=== PATIENT | female | born 1960 | race Caucasian/White ===

== ENCOUNTER 2016-06-03 15:53 | Emergency (ER) | payer OTHER ==
--- NOTE | 2016-06-03 18:30 | DIAGNOSTIC IMAGING REPORT ---
PROCEDURE: ABDOMEN/PELVIS WITH CONTRAST CLINICAL INDICATION: ABDO PAIN WITH HIATAL HERNIA SURGERY 5W AGO TECHNIQUE: 100 ml of Isovue 300 were injected intravenously and axial images were obtained of the abdomen and pelvis with sagittal and coronal reformations. COMPARISON: 03/28/2014 FINDINGS: ABDOMEN: Clear lung bases. Normal sized heart. No hiatal hernia. Morphology of recent Jannette fundoplication. No evidence of slipped Jannette. The stomach is mildly distended, filled with fluid, and demonstrating air fluid levels distally. 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 The pancreas is diminutive. There is a 3.7 cm cyst within what is likely the tail of the pancreas, not present previously. The liver demonstrates patchy hepatic steatosis in the region of the falciform ligament. The adrenal glands, kidneys, are normal. The abdominal aorta is normal in its course and caliber. No atherosclerosis. There are no suspicious calcifications, retroperitoneal adenopathy or masses. The small bowel loops are mainly right-sided and demonstrate occasional air fluid levels. There is liquid stool in the colon, mild sigmoid diverticulosis, and air fluid levels in distal colon and rectum. There are surgical changes of probable appendectomy in the right lower quadrant. PELVIS: The uterus is surgically absent. Ovaries are not identified. Surgical clips in the right inguinal region. The urinary bladder, and pelvic vessels are normal. No adenopathy, free fluid, or pelvic mass. Moderate to severe disc and endplate degeneration L4-5 and L5-S1. IMPRESSION: 1. No CT evidence of complication from recent Jannette fundoplication. 2. Changes of gastroenteritis including distended, fluid-filled stomach. 3. 3.7 cm probable pancreatic cyst, new since the prior study. This may be a pseudocyst or benign neoplasm. Further characterization with MRI is recommended. 4. 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 5. Distended gallbladder with moderate biliary dilatation. Correlate with LFTs. 6. Post hysterectomy and probable appendectomy. 7. Discussed with Dr. Marie in the emergency room. All CT scans at this facility use dose modulation, iterative reconstruction, and/or weight-based dosing when appropriate to reduce radiation dose to as low as reasonably achievable.
--- NOTE | 2016-06-03 19:43 | ED CLINICAL REPORT ---
Clinical Report - Physicians/Mid Levels [facility] [address] [place] [address] 06/03/2016 15:53 Patient: ROXANNE CAMPBELL Time Seen: 1555. Arrived- By ambulance. Historian- patient. HISTORY OF PRESENT ILLNESS Chief Complaint: ABDOMINAL PAIN. This started yesterday and is still present (worsening). It was abrupt in onset and has been constant but is not gone now. At its maximum, severity described as severe. When seen in the E.D., severity described as severe. Modifying factors- worsened by movement. (does not know what it is relieved by). It is described as located in the lower abdomen and radiating (upper abdomen). The patient has had nausea and vomiting. No loss of appetite or diarrhea. No recent travel. Similar symptoms previously: Many times. ( reports going to the emergency department multiple times but "they haven't done anything for me." Reports she went to [facility] and had hiatal hernia surgery done about 5 weeks ago.). Recent medical care: Not recently seen/assessed. REVIEW OF SYSTEMS No constipation, black stools, hematemesis, bloody stools or fever. No chest pain, difficulty breathing or skin rash. All systems otherwise negative, except as recorded above. PAST HISTORY See nurses notes. SOCIAL HISTORY Former smoker. No alcohol use or drug use. PHYSICAL EXAM Appearance: Alert. Oriented X3. Patient in mild distress. Eyes: Pupils equal, round and reactive to light. Eyes normal inspection. ENT: Ears normal. Nose normal. Pharynx normal. Neck: Normal inspection. Neck supple. CVS: Normal heart rate and rhythm. Heart sounds normal. Pulses normal. Respiratory: No respiratory distress. Breath sounds normal. Chest nontender. No rales, rhonchi or wheezes. Abdomen: Soft and nontender. No mass. (hyperactive bowel sounds. well healed abdominal scars. no hernia. no rebound or guarding. negatives ana's. no tenderness at mcburney's.). Skin: Skin warm and dry. Normal skin color. No rash. Extremities: Extremities exhibit normal ROM. No lower extremity edema. Neuro: No motor deficit. No sensory deficit. (normal gait). LABS, X-RAYS, AND EKG Abdominal CT: PROCEDURE: ABDOMEN/PELVIS WITH CONTRAST CLINICAL INDICATION: ABDO PAIN WITH HIATAL HERNIA SURGERY 5W AGO TECHNIQUE: 100 ml of Isovue 300 were injected intravenously and axial images were obtained of the abdomen and pelvis with sagittal and coronal reformations. COMPARISON: 03/28/2014 FINDINGS: ABDOMEN: Clear lung bases. Normal sized heart. No hiatal hernia. Morphology of recent Jannette fundoplication. No evidence of slipped Jannette. The stomach is mildly distended, filled with fluid, and demonstrating air fluid levels distally. 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 The pancreas is diminutive. There is a 3.7 cm cyst within what is likely the tail of the pancreas, not present previously. The liver demonstrates patchy hepatic steatosis in the region of the falciform ligament. The adrenal glands, kidneys, are normal. The abdominal aorta is normal in its course and caliber. No atherosclerosis. There are no suspicious calcifications, retroperitoneal adenopathy or masses. The small bowel loops are mainly right-sided and demonstrate occasional air fluid levels. There is liquid stool in the colon, mild sigmoid diverticulosis, and air fluid levels in distal colon and rectum. There are surgical changes of probable appendectomy in the right lower quadrant. PELVIS: The uterus is surgically absent. Ovaries are not identified. Surgical clips in the right inguinal region. The urinary bladder, and pelvic vessels are normal. No adenopathy, free fluid, or pelvic mass. Moderate to severe disc and endplate degeneration L4-5 and L5-S1. IMPRESSION: 1. No CT evidence of complication from recent Jannette fundoplication. 2. Changes of gastroenteritis including distended, fluid-filled stomach. 3. 3.7 cm probable pancreatic cyst, new since the prior study. This may be a pseudocyst or benign neoplasm. Further characterization with MRI is recommended. 4. 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 5. Distended gallbladder with moderate biliary dilatation. Correlate with LFTs. 6. Post hysterectomy and probable appendectomy. Study type: abdomen and pelvis. Abdominal CT performed with IV contrast. The study was independently viewed by me and interpreted by the radiologist. The study was discussed with the radiologist (via phone and pacs). Laboratory Tests: UA-Culture if indicated: (KWASI: 06/03/2016 16:55) ( [facility] [place] 06/03/[place] 17:27) Final results Test Result Flag Units (Reference) URINE COLOR YELLOW URINE APPEARANCE CLOUDY URINE GLUCOSE NEGATIVE (NEGATIVE) URINE BILIRUBIN NEGATIVE (NEGATIVE) URINE KETONE TRACE (NEGATIVE) URINE SPECIFIC GRAVITY 1.015 (1.010-1.030) URINE PH 8.5 H (5.0-8.0) URINE PROTEIN TRACE (NEGATIVE) URINE UROBILINOGEN 0.2 EU/dL (0.2-1.0) URINE NITRITE NEGATIVE (NEGATIVE) URINE BLOOD NEGATIVE (NEGATIVE) URINE LEUK ESTERASE NEGATIVE (NEGATIVE) URINE RBC NONE SEEN rbc/hpf (0-1) URINE WBC RARE wbc/hpf (0-1) URINE EPITHELIAL CELLS 0-1 EPI/hpf (0-5) URINE BACTERIA NONE SEEN (NONE SEEN) URINE COMMENT CULT NOT INDICATED 4+ AMORPHOUS PHOSPHATESURINE CULTURES ARE SET-UP BASED ON THE FOLLOWING CRITERIA:POSITIVE NITRITEPOSITIVE LEUKOCYTE ESTERASEGREATER THAN 10 WHITE BLOOD CELLSMODERATE (2+) OR GREATER BACTERIA Urine: (KWASI: 06/03/2016 16:55) ( [facility] [place] 06/03/2016 17:18) Final results Test Result Flag Units (Reference) URINE NEGATIVE CBC w Diff: (KWASI: 06/03/2016 16:05) ( [facility] [place] 06/03/2016 16:27) Final results Test Result Flag Units (Reference) WHITE BLOOD COUNT 5.8 K/uL (4.5-11.5) RED BLOOD COUNT 4.18 M/uL (4.00-5.20) HEMOGLOBIN 13.9 gm/dL (12.0-16.0) HEMATOCRIT 40.9 % (36.0-46.0) MEAN CELL VOLUME 98 fL (80-100) MEAN CORPUSCULAR HGB 33 pg (26-34) MEAN CORPUSCULAR HGB CONC 34 g/dL (31-37) RED CELL DISTRIBUTION WIDTH 17.3 H % (11.6-14.8) PLATELET COUNT 337 K/uL (150-400) NEUTROPHIL % 62.6 % (50-75) LYMPH % 23.3 L % (25-40) MONO % 11.4 % (3-14) EOSINOPHIL % 1.5 % (0-4) BASOPHIL % 1.2 % (0-2) Urine Drug Screen: (KWASI: 06/03/2016 16:55) ( [facility] [place] 06/03/2016 17:23) Final results Test Result Flag Units (Reference) AMPHETAMINE/METHAMPHETAMINE NEGATIVE (NEGATIVE) BARBITURATE NEGATIVE (NEGATIVE) BENZODIAZEPINE NEGATIVE (NEGATIVE) CANNABINOID NEGATIVE (NEGATIVE) COCAINE NEGATIVE (NEGATIVE) ECSTASY NEGATIVE (NEGATIVE) METHADONE NEGATIVE (NEGATIVE) OPIATE 2 (NEGATIVE) The urine drug screen is a qualitative screening test fordrug overdose and abuse. All screen results should beconsidered as presumptive.Drugs screened for are as follows:BenzodiazepinesCocaineAmphetamines/MetamphetaminesTHC (Tetrahydrocannabinol)OpiatesBarbituratesEcstasyMethadonePositive results are unconfirmed. For confirmation, notifythe lab for the specimen to be sent to the reference lab.All confirmations must be performed by a differentmethodology.The ingestion of natural herbal and plant productscontaining Ephedra/Ephedra metabolites can produce in urineone or more substances capable of cross reacting withamphetamine/methamphetamine immunoassays. These testsprovide a preliminary result only. A more specificalternative chemical method must be used to obtain aconfirmed analytical result. CMP: (KWASI: 06/03/2016 16:05) ( [facility] [place] 06/03/2016 17:23) Final results Test Result Flag Units (Reference) GLUCOSE 114 H mg/dL (70-110) BUN 8 mg/dL (7-18) CREATININE 0.7 mg/dL (0.6-1.3) Estimated GFR >60 mL/min Estimated GFR- >60 mL/min Note: Persistent reduction over 3 months in eGFR<60 mL/min/1.73 m2 defines CKD. Patients with eGFR values>=60 mL/min/1.73 m2 may also have CKD if evidence ofpersistent proteinuria. Additional information may be foundat www.kidney.org. SODIUM 136 mmol/L (136-145) POTASSIUM 3.8 mmol/L (3.5-5.1) CHLORIDE 98 mmol/L (98-107) CARBON DIOXIDE 26 mmol/L (21-32) CALCIUM 9.1 mg/dL (8.5-10.1) TOTAL PROTEIN 7.5 g/dL (6.4-8.2) ALBUMIN 3.6 g/dL (3.3-5.0) BILIRUBIN, TOTAL 0.4 mg/dL (0.0-1.0) ALKALINE PHOSPHATASE 145 H U/L (46-116) AST (SGOT) 88 H U/L (15-37) ALT (SGPT) 50 U/L (12-78) LIPASE 40 L U/L (73-393) . PROGRESS AND PROCEDURES Course of Care: the patient is a pleasant 37-year-old female with past medical history significant for recent "hiatal hernia repair. "The patient is in a mild amount of distress when here in the emergency department. Patient is also noted to have several visits to an outside facility for similar problems. Had long discussion with patient in regards to capabilities and services available here in the emergency department. Patient is agreeable to the treatment and plan. At this time differential diagnosis includes perforation, ischemic bowel, small bowel obstruction, or intra-abdominal abscess. Laboratory studies have been ordered as well as urinalysis. Pain medication, nausea medication and fluids have also been ordered. Workup does not show any acute surgical abnormalities to the abdomen and pelvis. Patient does have several congenital abnormalities on her CT scan results. Had discussion with radiology in regards to the findings. A printout of the patient's laboratory studies and imaging results also been given to the patient and reviewed with the patient's at bedside. Patient is reporting significant improvement with her symptoms. Patient is nontoxic and in no acute distress. Patient started to have increasing diarrhea while here in the emergency department. Signs and symptoms appear to be nonsurgical at this time. Discussed with patient workup, diagnosis, home care, follow-up, and return precautions. All questions have been answered. The patient expressed understanding of these instructions and was agreeable to them. Repeat abdominal exam is benign. CLINICAL IMPRESSION Acute suprapubic abdominal pain. Vomiting with nausea (acute). Diarrhea (acute, mild). pancreatic cyst, chronic elevate liver enzymes, chronic. INSTRUCTIONS Warnings: GENERAL WARNINGS: Return or contact your physician immediately if your condition worsens or changes unexpectedly, if not improving as expected, or if other problems arise. SPECIFICALLY, return if you develop pain, fever, vomiting, the inability to keep fluids down, blood in vomitus, blood in diarrhea, fainting or lightheadedness. Your Current Medications: CONTINUE TAKING THE FOLLOWING MEDICATIONS: Elma Thyroid Oral : Tablet 180 mg, 1 tablet. Cymbalta Oral. Dicyclomine HCl Oral. Reglan Oral. Prescription Medications: Zofran (orally disintegrating tablets) 4 mg: take 1 orally every 8 hours as needed for nausea and vomiting. Dispense ten (10). No refill. Substitution is permissible. Oxycodone 5 mg tablets: take 1 orally every 6 hours as needed for pain. Dispense fifteen (15). No refill. Follow-up: Return to the emergency department as needed. Follow up with a loss prevention guard as scheduled. Reason for referral: recheck today's concerns. Summary of care provided to patient via paper. Follow up with your doctor in three days. Reason for referral: recheck today's concerns. Summary of care provided to patient via paper. Screening today revealed the patient's blood pressure to be in the normal range. The patient should follow up with a primary care provider for blood pressure management. Understanding of the discharge instructions verbalized by patient. (Electronically signed by Chilo Marie Dr. 06/05/2016 4:04)
--- NOTE | 2016-06-03 19:44 | ED ORDER SUMMARY ---
..... Patient: ROXANNE CAMPBELL OrderSheet [facility] VisitID: [id number] [place] [address] 55y, F Registration Date/Time: 06/03/2016 ORDER SHEET Weight: 61.2 kg (stated) Allergies: Amoxicillin, Phenergan GENERAL ORDERS: CT Abd/Pel w Cont (No) (N/A) Urgent (15:59 06/03/2016 Poncho Delcid) (Ack 16:05 LNations ER Tech1) (17:50 Kassy) CBC w Diff Urgent (16:00 06/03/2016 Poncho Delcid) (Ack 16:04 LNations ER Tech1) (16:10 JSlawandas R.N.) CMP Urgent (16:00 06/03/2016 Poncho Delcid) (Ack 16:05 LNations ER Tech1) (16:30 JSanders R.N.) UA-Culture if indicated Urgent (16:00 06/03/2016 Poncho Delcid) (Ack 16:05 LNations ER Tech1) (17:01 JSimbeck R.N.) Lipase Urgent (16:00 06/03/2016 Poncho Delcid) (Ack 16:05 LNations ER Tech1) (16:30 JSanders R.N.) Urine Drug Screen Urgent (16:00 06/03/2016 Poncho Delcid) (Ack 16:05 LNations ER Tech1) (17:01 JSimbeck R.N.) Urine Urgent (16:00 06/03/2016 Poncho Delcid) (Ack 16:05 LNations ER Tech1) (17:01 JSimbeck R.N.) Pulse oximeter (16:00 06/03/2016 Poncho Delcid) (Ack 16:02 LNations ER Tech1) (16:11 JSimbeck R.N.) MEDICATION ORDERS: IV FLUIDS: IV NS : initial bolus 1000 mL (1000 mL/hr), then none - for X1 (NOW) (15:59 06/03/2016 Poncho Delcid) (16:32 JSanders R.N.) Morphine IV 8 mg (HIGH ALERT MEDICATION, NOW) (16:00 06/03/2016 Poncho Delcid) (16:32 Ashley Acharya) Zofran IV 4 mg (NOW) (16:00 06/03/2016 Poncho Delcid) (16:33 Ashley Epperson.Jordan) Morphine IV 8 mg (HIGH ALERT MEDICATION, NOW) (19:36 06/03/2016 Poncho Delcid) (19:49 Maryana Epperson.Jordan) ORDER SHEET NOTES: [Electronically signed by Eleni Molina R.N. (20:31 06/03/2016)] [Electronically signed by Chilo Marie Dr. (04:04 06/05/2016)] [Electronically locked/signed by Eleni Molina R.N. (20:31 06/03/2016)]
--- NOTE | 2016-06-03 19:44 | ED NURSING NOTES ---
Clinical Report - Nurses [facility] [address] [place] [address] 06/03/2016 15:53 [id number] Triage time 15:56. Acuity: LEVEL 3. Chief Complaint: (Severe abd pain 5 days post-op hiatal hernia surgery, nausea, dry heaves). 16:01 06/03/16. SEPSIS SCREEN: Sepsis Screen. Negative (no infection suspected/documented). JHON COMA SCORE: Jhon Coma Scale: 15- eyes open spontaneously (4); best verbal response- oriented x 4 (5); best motor response- obeys commands (6). --16:04 Anuj Martines R.N. 15:56 06/03/16. BP: 168/121. HR: 110. RR: 16. O2 saturation: 97% on room air. Temp: 98.3 F (oral). Pain level now: 01/08. --16:04 Anuj Martines R.N. Weight: 61.2 kg stated. Height/Length: 69 inches Per Patient. BMI: 19.9. --16:00 Anuj Martines R.N. Medications Cymbalta Oral. --16:00 Anuj Martines R.N. Dicyclomine HCl Oral. --16:00 Anuj Martines R.N. Reglan Oral. --16:00 Anuj Martines R.N. [place] Thyroid Oral (Tablet 180 mg) 1 tablet. --16:01 Anuj Martines R.N. Allergies Amoxicillin. Mild(diarrhea) Phenergan. Moderate(itching) (IV form, pt has taken PO and MS) --15:57 Anuj Martines R.N. History Arrived by EMS. Historian: patient. Onset. (5 days ago). No fever. Treatment TOE STAPLER: None. SOCIAL HX: Former smoker, end date 05/2016 (cigarette). Occasional alcohol use. No drug use. ABUSE ASSESSMENT: No report of abuse. --16:04 Anuj Martines R.N. PROBLEMS: Hiatal Hernia. UTI - Urinary Tract Infection. Fibromyalgia. Chronic Headache. Abdominal Pain. Gastritis. Hypokalemia. Gastroesophageal Reflux Disease. Twisted Bowel. Sinusitis. Lifestyle / Substance Problems. Sinus Problems. ? stomach problems. Migraine Headache. --15:58 Anuj Martines R.N. ADDITIONAL SURGERIES: Hiatal hernia. --15:58 Anuj Martines R.N. Interventions To treatment room. --16:04 Anuj Martines R.N. PHYSICAL ASSESSMENT 16:06 06/03/16. To room via stretcher. GENERAL / NEURO / PSYCH: Alert. Oriented X 4. Appears in pain. HEENT: Pupils equal, round and reactive to light. No facial asymmetry noted. Mucous membranes are pink. RESPIRATORY: Respirations not labored. Chest nontender. Breath sounds within normal limits. CVS: Cardiac rhythm: sinus tachycardia. Capillary refill less than 2 seconds. Pulses within normal limits. GI / : Abdomen soft. Abdominal tenderness diffusely and in the suprapubic area and lower abdomen. Guarding present. SKIN: Skin is warm and dry. Normal skin turgor. ( Surgical incisions are healing well). --16:06 Anuj Martines R.N. NURSING PROGRESS NOTES 16:06/03/16. professional services consultant, pulse oximeter and NIBP monitor placed on patient; public address system operator- Lead II and V1; monitor alarms on. Patient gowned. Reassurance given. Call light placed in reach. Side rails up x 2. Bed placed in lowest position. Brakes of bed on. Patient ready for evaluation- chart flagged. --16:06 Anuj Martines R.N. 16:16 06/03/2016 Site #1 started via IV in the right forearm with an 20g angiocath, with aseptic technique and good blood return; one attempt. Blood drawn: rainbow set. Labeled in the presence of the patient and sent to the lab. Saline lock flushed with 10 mL saline. --16:31 Simona Lo R.N. 16:17 06/03/2016 Started bag #1 1000 mL IV Fluids IV NS (Saline); at 1000 mL/hr over 1 hour(s) via site #1 via dial-a-flow. Allergies verified and confirmed 5 rights. IV patency established. IV site checked: no pain, redness, or swelling. IV flushed thoroughly pre- and post-medication administration. --16:32 Simona Lo R.N. 16:17 06/03/2016 Morphine IVP 8 mg given over 2 minute(s) via site #1. Allergies verified, confirmed 5 rights and sedative warning given to the patient. IV patency established. IV site checked: no pain, redness, or swelling. IV flushed thoroughly pre- and post-medication administration. IVP given by RN. --16:32 Simona Lo R.N. 16:18 06/03/2016 Zofran (Ondansetron HCl) IVP 4 mg given over 1 minute(s) via site #1. Allergies verified and confirmed 5 rights. IV patency established. IV site checked: no pain, redness, or swelling. IV flushed thoroughly pre- and post-medication administration. IVP given by RN. --16:33 Simona Lo R.N. 17:14 06/03/2016 Morphine IVP Response: no adverse reaction pain is improving. Symptoms have improved the patient feels better. --17:14 Simona Lo R.N. 17:14 06/03/2016 Zofran IVP Response: no adverse reaction pain is improving. Symptoms have improved the patient feels better. --17:14 Simona Lo R.N. 17:50 06/03/16. Patient returned from radiology by stretcher with tech. (17:48 Jun 03 2016). ( Patient feeling much better, no more N/V and pain is relieved). --17:50 Simona Lo R.N. 17:48 06/03/16. BP: 115/77 (regular adult cuff) taken on the left arm, while lying. HR: 110. RR: 16 (regular). O2 saturation: 98% on room air. Temp: 98 F (oral). Pain level now: 04/10. --17:50 Simona Lo R.N. 18:33 06/03/2016 IV Fluids IV NS Discontinued: bag #1 completed. Total amount infused: 1000 mL. IV patency established. IV site checked: no pain, redness, or swelling. IV flushed thoroughly. --18:33 Simona Lo R.N. 18:34 06/03/16. ( Patient up to use the restroom, NS fluid complete, patient says her pain is starting to return). --18:34 Simona Lo R.N. 18:40 06/03/16. ( Patient returned from restroom). --18:40 Simona Lo R.N. 18:39 06/03/16. BP: 108/72 (regular adult cuff) taken on the left arm, while lying. HR: 109. RR: 18 (regular). O2 saturation: 96% on room air. Temp: 97.8 F (oral). Pain level now: 4/10. --18:40 Simona Lo R.N. 18:57 06/03/16. ( Patient up to use the restroom). --18:57 Simona Lo R.N. 19:07 06/03/16. Care transferred and report received (from KELTON Jarvis). --19:07 Eleni Molina R.N. 19:47 06/03/2016 Morphine IVP 8 mg given over 2 minute(s) via site #1. Allergies verified, confirmed 5 rights and sedative warning given to the patient. IV patency established. IV site checked: no pain, redness, or swelling. IV flushed thoroughly pre- and post-medication administration. IVP given by RN. --19:49 Eleni Molina R.N. 19:49 06/03/16. ( Remedicated for pain). --19:49 Eleni Molina R.N. DISPOSITION / DISCHARGE 20:06 06/03/16. BP: 97/73. HR: 96. RR: 16. O2 saturation: 98%. Temp: 97.7 F. Pain level now 0/10. --20:09 Kim Murry ER Tech1 20:26 06/03/2016 Site #1 removed upon discharge. --20:30 Eleni Molina R.N. 20:30 06/03/16. Condition at departure: improved and stable. No learning barriers present. Discharge instructions provided and reviewed with the patient. Reviewed medication(s) side effects, precautions, dosing and course information. Prescription(s) given to the patient. Reviewed referral to a surgeon and primary care physician for followup. Summary of care provided to patient via paper. Patient verbalized understanding. Written instructions provided in German. The patient was discharged home and accompanied by meal cook. She left the Emergency Department ambulatory and via private vehicle. Team Guide driving. --20:30 Eleni Molina R.N. 20:06 06/03/16. BP: 97/73. HR: 96. RR: 16. O2 saturation: 98%. Temp: 97.7 F. Pain level now . 18:39 06/03/16. BP: 108/72 (regular adult cuff) taken on the left arm, while lying. HR: 109. RR: 18 (regular). O2 saturation: 96% on room air. Temp: 97.8 F (oral). Pain level now: 07/09. 17:48 06/03/16. BP: 115/77 (regular adult cuff) taken on the left arm, while lying. HR: 110. RR: 16 (regular). O2 saturation: 98% on room air. Temp: 98 F (oral). Pain level now: 04/10. 15:56 06/03/16. BP: 168/121. HR: 110. RR: 16. O2 saturation: 97% on room air. Temp: 98.3 F (oral). Pain level now: 01/08. --20:30 Eleni Molina R.N. 20:30 06/03/16. Departure time: 20:30 Jun 03 2016. --20:30 Eleni Molina R.N. Locked/Released at 06/03/2016 20:31 by Eleni Molina R.N.
--- NOTE | 2016-06-03 19:44 | ED NURSING NOTES ---
Clinical Report - Nurses [facility] [address] [place] [address] 06/03/2016 15:53 [id number] Triage time 15:56. Acuity: LEVEL 3. Chief Complaint: (Severe abd pain 5 days post-op hiatal hernia surgery, nausea, dry heaves). 16:01 06/03/16. SEPSIS SCREEN: Sepsis Screen. Negative (no infection suspected/documented). JHON COMA SCORE: Jhon Coma Scale: 15- eyes open spontaneously (4); best verbal response- oriented x 4 (5); best motor response- obeys commands (6). --16:04 Anuj Martines R.N. 15:56 06/03/16. BP: 168/121. HR: 110. RR: 16. O2 saturation: 97% on room air. Temp: 98.3 F (oral). Pain level now: 01/08. --16:04 Anuj Martines R.N. Weight: 61.2 kg stated. Height/Length: 69 inches Per Patient. BMI: 19.9. --16:00 Anuj Martines R.N. Medications Cymbalta Oral. --16:00 Anuj Martines R.N. Dicyclomine HCl Oral. --16:00 Anuj Martines R.N. Reglan Oral. --16:00 Anuj Martines R.N. [place] Thyroid Oral (Tablet 180 mg) 1 tablet. --16:01 Anuj Martines R.N. Allergies Amoxicillin. Mild(diarrhea) Phenergan. Moderate(itching) (IV form, pt has taken PO and MS) --15:57 Anuj Martines R.N. History Arrived by EMS. Historian: patient. Onset. (5 days ago). No fever. Treatment GI ASST: None. SOCIAL HX: Former smoker, end date 05/2016 (cigarette). Occasional alcohol use. No drug use. ABUSE ASSESSMENT: No report of abuse. --16:04 Anuj Martines R.N. PROBLEMS: Hiatal Hernia. UTI - Urinary Tract Infection. Fibromyalgia. Chronic Headache. Abdominal Pain. Gastritis. Hypokalemia. Gastroesophageal Reflux Disease. Twisted Bowel. Sinusitis. Lifestyle / Substance Problems. Sinus Problems. ? stomach problems. Migraine Headache. --15:58 Anuj Martines R.N. ADDITIONAL SURGERIES: Hiatal hernia. --15:58 Anuj Martines R.N. Interventions To treatment room. --16:04 Anuj Martines R.N. PHYSICAL ASSESSMENT 16:06 06/03/16. To room via stretcher. GENERAL / NEURO / PSYCH: Alert. Oriented X 4. Appears in pain. HEENT: Pupils equal, round and reactive to light. No facial asymmetry noted. Mucous membranes are pink. RESPIRATORY: Respirations not labored. Chest nontender. Breath sounds within normal limits. CVS: Cardiac rhythm: sinus tachycardia. Capillary refill less than 2 seconds. Pulses within normal limits. GI / : Abdomen soft. Abdominal tenderness diffusely and in the suprapubic area and lower abdomen. Guarding present. SKIN: Skin is warm and dry. Normal skin turgor. ( Surgical incisions are healing well). --16:06 Anuj Martines R.N. NURSING PROGRESS NOTES 16:06/03/16. product development coordinator, pulse oximeter and NIBP monitor placed on patient; photo offset printer- Lead II and V1; monitor alarms on. Patient gowned. Reassurance given. Call light placed in reach. Side rails up x 2. Bed placed in lowest position. Brakes of bed on. Patient ready for evaluation- chart flagged. --16:06 Anuj Martines R.N. 16:16 06/03/2016 Site #1 started via IV in the right forearm with an 20g angiocath, with aseptic technique and good blood return; one attempt. Blood drawn: rainbow set. Labeled in the presence of the patient and sent to the lab. Saline lock flushed with 10 mL saline. --16:31 Simona Lo R.N. 16:17 06/03/2016 Started bag #1 1000 mL IV Fluids IV NS (Saline); at 1000 mL/hr over 1 hour(s) via site #1 via dial-a-flow. Allergies verified and confirmed 5 rights. IV patency established. IV site checked: no pain, redness, or swelling. IV flushed thoroughly pre- and post-medication administration. --16:32 Simona Lo R.N. 16:17 06/03/2016 Morphine IVP 8 mg given over 2 minute(s) via site #1. Allergies verified, confirmed 5 rights and sedative warning given to the patient. IV patency established. IV site checked: no pain, redness, or swelling. IV flushed thoroughly pre- and post-medication administration. IVP given by RN. --16:32 Simona Lo R.N. 16:18 06/03/2016 Zofran (Ondansetron HCl) IVP 4 mg given over 1 minute(s) via site #1. Allergies verified and confirmed 5 rights. IV patency established. IV site checked: no pain, redness, or swelling. IV flushed thoroughly pre- and post-medication administration. IVP given by RN. --16:33 Simona Lo R.N. 17:14 06/03/2016 Morphine IVP Response: no adverse reaction pain is improving. Symptoms have improved the patient feels better. --17:14 Simona Lo R.N. 17:14 06/03/2016 Zofran IVP Response: no adverse reaction pain is improving. Symptoms have improved the patient feels better. --17:14 Simona Lo R.N. 17:50 06/03/16. Patient returned from radiology by stretcher with tech. (17:48 Jun 03 2016). ( Patient feeling much better, no more N/V and pain is relieved). --17:50 Simona Lo R.N. 17:48 06/03/16. BP: 115/77 (regular adult cuff) taken on the left arm, while lying. HR: 110. RR: 16 (regular). O2 saturation: 98% on room air. Temp: 98 F (oral). Pain level now: 04/10. --17:50 Simona Lo R.N. 18:33 06/03/2016 IV Fluids IV NS Discontinued: bag #1 completed. Total amount infused: 1000 mL. IV patency established. IV site checked: no pain, redness, or swelling. IV flushed thoroughly. --18:33 Simona Lo R.N. 18:34 06/03/16. ( Patient up to use the restroom, NS fluid complete, patient says her pain is starting to return). --18:34 Simona Lo R.N. 18:40 06/03/16. ( Patient returned from restroom). --18:40 Simona Lo R.N. 18:39 06/03/16. BP: 108/72 (regular adult cuff) taken on the left arm, while lying. HR: 109. RR: 18 (regular). O2 saturation: 96% on room air. Temp: 97.8 F (oral). Pain level now: 4/10. --18:40 Simona Lo R.N. 18:57 06/03/16. ( Patient up to use the restroom). --18:57 Simona Lo R.N. 19:07 06/03/16. Care transferred and report received (from KELTON Jarvis). --19:07 Eleni Molina R.N. 19:47 06/03/2016 Morphine IVP 8 mg given over 2 minute(s) via site #1. Allergies verified, confirmed 5 rights and sedative warning given to the patient. IV patency established. IV site checked: no pain, redness, or swelling. IV flushed thoroughly pre- and post-medication administration. IVP given by RN. --19:49 Eleni Molina R.N. 19:49 06/03/16. ( Remedicated for pain). --19:49 Eleni Molina R.N. DISPOSITION / DISCHARGE 20:06 06/03/16. BP: 97/73. HR: 96. RR: 16. O2 saturation: 98%. Temp: 97.7 F. Pain level now 0/10. --20:09 Kim Murry ER Tech1 20:26 06/03/2016 Site #1 removed upon discharge. --20:30 Eleni Molina R.N. 20:30 06/03/16. Condition at departure: improved and stable. No learning barriers present. Discharge instructions provided and reviewed with the patient. Reviewed medication(s) side effects, precautions, dosing and course information. Prescription(s) given to the patient. Reviewed referral to a surgeon and primary care physician for followup. Summary of care provided to patient via paper. Patient verbalized understanding. Written instructions provided in Yakut. The patient was discharged home and accompanied by facilities director. She left the Emergency Department ambulatory and via private vehicle. Special Education Tutor driving. --20:30 Eleni Molina R.N. 20:06 06/03/16. BP: 97/73. HR: 96. RR: 16. O2 saturation: 98%. Temp: 97.7 F. Pain level now . 18:39 06/03/16. BP: 108/72 (regular adult cuff) taken on the left arm, while lying. HR: 109. RR: 18 (regular). O2 saturation: 96% on room air. Temp: 97.8 F (oral). Pain level now: 07/09. 17:48 06/03/16. BP: 115/77 (regular adult cuff) taken on the left arm, while lying. HR: 110. RR: 16 (regular). O2 saturation: 98% on room air. Temp: 98 F (oral). Pain level now: 04/10. 15:56 06/03/16. BP: 168/121. HR: 110. RR: 16. O2 saturation: 97% on room air. Temp: 98.3 F (oral). Pain level now: 01/08. --20:30 Eleni Molina R.N. 20:30 06/03/16. Departure time: 20:30 Jun 03 2016. --20:30 Eleni Molina R.N. Locked/Released at 06/03/2016 20:31 by Eleni Molina R.N.
--- NOTE | 2016-06-03 19:44 | ED ORDER SUMMARY ---
..... Patient: ROXANNE CAMPBELL OrderSheet [facility] VisitID: [id number] [place] [address] 55y, F Registration Date/Time: 06/03/2016 ORDER SHEET Weight: 61.2 kg (stated) Allergies: Amoxicillin, Phenergan GENERAL ORDERS: CT Abd/Pel w Cont (No) (N/A) Urgent (15:59 06/03/2016 Poncho Delcid) (Ack 16:05 LNations ER Tech1) (17:50 Kassy) CBC w Diff Urgent (16:00 06/03/2016 Poncho Delcid) (Ack 16:04 LNations ER Tech1) (16:10 JSlawandas R.N.) CMP Urgent (16:00 06/03/2016 Poncho Delcid) (Ack 16:05 LNations ER Tech1) (16:30 JSanders R.N.) UA-Culture if indicated Urgent (16:00 06/03/2016 Poncho Delcid) (Ack 16:05 LNations ER Tech1) (17:01 JSimbeck R.N.) Lipase Urgent (16:00 06/03/2016 Poncho Delcid) (Ack 16:05 LNations ER Tech1) (16:30 JSanders R.N.) Urine Drug Screen Urgent (16:00 06/03/2016 Poncho Delcid) (Ack 16:05 LNations ER Tech1) (17:01 JSimbeck R.N.) Urine Urgent (16:00 06/03/2016 Poncho Delcid) (Ack 16:05 LNations ER Tech1) (17:01 JSimbeck R.N.) Pulse oximeter (16:00 06/03/2016 Poncho Delcid) (Ack 16:02 LNations ER Tech1) (16:11 JSimbeck R.N.) MEDICATION ORDERS: IV FLUIDS: IV NS : initial bolus 1000 mL (1000 mL/hr), then none - for X1 (NOW) (15:59 06/03/2016 Poncho Delcid) (16:32 JSanders R.N.) Morphine IV 8 mg (HIGH ALERT MEDICATION, NOW) (16:00 06/03/2016 Poncho Delcid) (16:32 Ashley Acharya) Zofran IV 4 mg (NOW) (16:00 06/03/2016 Poncho Delcid) (16:33 Ashley Epperson.Jordan) Morphine IV 8 mg (HIGH ALERT MEDICATION, NOW) (19:36 06/03/2016 Poncho Delcid) (19:49 Maryana Epperson.Jordan) ORDER SHEET NOTES: [Electronically signed by Eleni Molina R.N. (20:31 06/03/2016)] [Electronically signed by Chilo Marie Dr. (04:04 06/05/2016)] [Electronically locked/signed by Eleni Molina R.N. (20:31 06/03/2016)]
--- NOTE | 2016-06-05 04:04 | ED DISCHARGE INSTRUCTIONS ---
Patient: ROXANNE CAMPBELL General Instructions [facility] VisitID: [id number] [place] [address] 55y, F Registration Date/Time: 06/03/2016 Acute suprapubic abdominal pain. Vomiting with nausea (acute). Diarrhea (acute, mild). pancreatic cyst, chronic elevate liver enzymes, chronic. INSTRUCTIONS Warnings: GENERAL WARNINGS: Return or contact your physician immediately if your condition worsens or changes unexpectedly, if not improving as expected, or if other problems arise. SPECIFICALLY, return if you develop pain, fever, vomiting, the inability to keep fluids down, blood in vomitus, blood in diarrhea, fainting or lightheadedness. Your Current Medications: CONTINUE TAKING THE FOLLOWING MEDICATIONS: [place] Thyroid Oral : Tablet 180 mg, 1 tablet. Cymbalta Oral. Dicyclomine HCl Oral. Reglan Oral. Prescription Medications: Zofran (orally disintegrating tablets) 4 mg: take 1 orally every 8 hours as needed for nausea and vomiting. Dispense ten (10). No refill. Substitution is permissible. Oxycodone 5 mg tablets: take 1 orally every 6 hours as needed for pain. Dispense fifteen (15). No refill. Follow-up: Return to the emergency department as needed. Follow up with a ultrasonic seaming machine operator as scheduled. Reason for referral: recheck today's concerns. Summary of care provided to patient via paper. Follow up with your doctor in three days. Reason for referral: recheck today's concerns. Summary of care provided to patient via paper. Screening today revealed the patient's blood pressure to be in the normal range. The patient should follow up with a primary care provider for blood pressure management. Understanding of the discharge instructions verbalized by patient. ADDITIONAL INFORMATION Abdominal Pain, Unknown Cause (Female) The exact cause of your abdominal (stomach) pain is not certain. This does not mean that this is something to worry about, or the right tests were not done. Everyone likes to know the exact cause of the problem, but sometimes with abdominal pain, there is no clear-cut cause, and this could be a good thing. The good news is that your symptoms can be treated, and you will feel better. Your condition does not seem serious now; however, sometimes the signs of a serious problem may take more time to appear. For this reason,it is important for you to watch for any new symptoms, problems,or worsening of your condition. Over the next few days, the abdominal pain may come and go, or be continuous. Other common symptoms can include nausea and vomiting. Sometimes it can be difficult to tell if you feel nauseous, you may just feel bad and not associate that feeling with nausea. Constipation, diarrhea, and a fever may go along with the pain. The pain may continue even if treated correctly over the following days. Depending on how things go, sometimes the cause can become clear and may require further or different treatment. Additional evaluations, medications, or tests may be needed. Home care Your health care provider may prescribe medications for pain, symptoms, or an infection. Follow the health care provider's instructions for taking these medications. General care Rest until your next exam. No strenuous activities. Try to find positions that ease discomfort. A small pillow placed on the abdomen may help relieve pain. Something warm on your abdomen (such as a heating pad) may help, but be careful not to burn yourself. Diet Do not force yourself to eat, especially if having cramps, vomiting, or diarrhea. Water is important so you do not get dehydrated. Soup may also be good. Sports drinks may also help, especially if they are not too acidic. Make sure you don't drink sugary drinks as this can make things worse. Take liquids in small amounts. Do not guzzle them. Caffeine sometimes makes the pain and cramping worse. Avoid dairy products if you have vomiting or diarrhea. Don't eat large amounts at a time. Wait a few minutes between bites. Eat a diet low in fiber (called a low-residue diet). Foods allowed include refined breads, white rice, fruit and vegetable juices without pulp, tender meats. These foods will pass more easily through the intestine. Avoid whole-grain foods, whole fruits and vegetables, meats, seeds and nuts, fried or fatty foods, dairy, alcohol and spicy foods until your symptoms go away. Follow-up care Follow up with your health care provider as instructed, or if your pain does not begin to improve in the next 24 hours. When to seek medical care Seek prompt medical care if any of the following occur: Pain gets worse or moves to the right lower abdomen New or worsening vomiting or diarrhea Swelling of the abdomen Unable to pass stool for more than three days Fever of 100.4F (38C) or higher, or as directed by your healthcare provider. Blood in vomit or bowel movements (dark red or black color) Jaundice (yellow color of eyes and skin) Weakness, dizziness Chest, arm, back, neck or jaw pain Unexpected vaginal bleeding or missed period Call 911 Call emergency services if any of the following occur: Trouble breathing Confusion Fainting or loss of consciousness Rapid heart rate Seizure Vomiting [6Yr-Adult] Vomiting is a common symptom that may be due to different causes. These include gastroenteritis ("stomach flu"), food poisoning and gastritis. There are other more serious causes of vomiting which may be hard to diagnose early in the illness. Therefore, it is important to watch for the warning signs listed below. The main danger from repeated vomiting is dehydration. This is due to excess loss of water and minerals from the body. When this occurs, body fluids must be replaced. Home Care: If symptoms are severe, rest at home for the next 24 hours. You may use acetaminophen (Tylenol) or ibuprofen (Motrin, Advil) to control fever, unless another medicine was prescribed. [NOTE : If you have chronic liver or kidney disease or ever had a stomach ulcer or GI bleeding, talk with your doctor before using these medicines.] (Aspirin should never be used in anyone under 18 years of age who is ill with a fever. It may cause severe liver damage.) Avoid tobacco and alcohol use, which may worsen your symptoms. If medicines for vomiting were prescribed, take as directed. Once vomiting stops, then follow these guidelines: During The First 12-24 Hours follow the diet below: FRUIT JUICES: Apple, grape juice, clear fruit drinks, and electrolyte replacement drinks. BEVERAGES: Soft drinks without caffeine; mineral water (plain or flavored), decaffeinated tea and coffee. SOUPS: Clear broth, consomm and bouillon DESSERTS: Plain gelatin, popsicles and fruit juice bars. As you feel better, you may add 6-8 ounces of yogurt per day. During The Next 24 Hours you may add the following to the above: Hot cereal, plain toast, bread, rolls, crackers Plain noodles, rice, mashed potatoes, chicken noodle or rice soup Unsweetened canned fruit (avoid pineapple), bananas Limit caffeine and chocolate. No spices or seasonings except salt. During The Next 24 Hours Gradually resume a normal diet, as you feel better and your symptoms lessen. Follow Up with your doctor as advised if you are not improving over the next 2-3 days. Get Prompt Medical Attention if any of the following occur: Constant right-sided lower abdominal pain or increasing general abdominal pain Continued vomiting (unable to keep liquids down) for 24 hours Frequent diarrhea (more than 5 times a day); blood (red or black color) or mucus in diarrhea Reduced urine output or extreme thirst Weakness, dizziness or fainting Unusually drowsy or confused Fever of 100.4F (38C) oral or higher, not better with fever medication Yellow color of the eyes or skin Diarrhea, Uncertain Cause (Adult, Report Pending) Diarrhea has several possible causes. Commonstomach fluis caused by a virus. Food poisoning, bacteria or parasites are other causes for diarrhea. Only diarrhea caused by bacteria or parasites requires treatment with an antibiotic. Diarrhea from a virus or food poisoning improves with simple home treatment. A stool sample is needed to make the diagnosis of an infection with bacteria or parasites. Up to three stool specimens may be required to diagnose This may take up to two days to get the result. It may be necessary to wait until the stool test is complete to make the diagnosis and select the best antibiotic to prescribe. Home Care: If symptoms are severe, rest at home for the next 24 hours or until you are feeling better. You may use acetaminophen (Tylenol) or ibuprofen (Motrin, Advil) to control fever, unless another medicine was prescribed. [NOTE: If you have chronic liver or kidney disease or ever had a stomach ulcer or GI bleeding, talk with your doctor before using these medicines.] (Aspirin should never be used in anyone under 18 years of age who is ill with a fever. It may cause severe liver damage.) Avoid tobacco, caffeine and alcohol, which may worsen your symptoms. If anti-diarrhea medicine was prescribed, take this only as directed. Sometimes anti-diarrhea medicine can make your condition worse if the cause is an infectious diarrhea. Therefore, anti-diarrhea medicine should not be taken for this condition unless advised by your doctor. During The First 12-24 Hours follow the diet below: BEVERAGES: Sport drinks like Gatorade, soft drinks without caffeine; sari edilma, mineral water (plain or flavored), decaffeinated tea and coffee. SOUPS: Clear broth, consomm and bouillon DESSERTS: Plain gelatin (Jell-O), popsicles and fruit juice bars. During The Next 24 Hours you may add the following to the above: Hot cereal, plain toast, bread, rolls, crackers Plain noodles, rice, mashed potatoes, chicken noodle or rice soup Unsweetened canned fruit (avoid pineapple), bananas Limit fat intake to less than 15 grams per day by avoiding margarine, butter, oils, mayonnaise, sauces, gravies, fried foods, peanut butter, meat, poultry and fish. Limit fiber; avoid raw or cooked vegetables, fresh fruits (except bananas) and bran cereals. Limit caffeine and chocolate. No spices or seasonings except salt. During The Next 24 Hours Gradually resume a normal diet, as you feel better and your symptoms lessen. Follow Up with your doctor or as advised if you are not improving over the next two days. If you were asked to bring a specimen from home, bring the sample on the day of collection. You may call in 2 days (or as directed) for the results. Get Prompt Medical Attention if any of the following occur: Increasing abdominal pain or constant lower right abdominal pain Continued vomiting (unable to keep liquids down) Frequent diarrhea (more than 5 times a day) Blood in vomit or stool (black or red color) Reduced oral intake Dark urine, reduced urine output Weakness, dizziness, fainting Drowsiness, confusion, stiff neck or seizure Fever of 100.4F (38C) oral or higher, not better with fever medication New rash Ondansetron Oral disintegrating tablet What is this medicine? ONDANSETRON (on INGRID se lui) is used to treat nausea and vomiting caused by chemotherapy. It is also used to prevent or treat nausea and vomiting after surgery. How should I use this medicine? These tablets are made to dissolve in the mouth. Do not try to push the tablet through the foil backing. With dry hands, peel away the foil backing and gently remove the tablet. Place the tablet in the mouth and allow it to dissolve, then swallow. While you may take these tablets with water, it is not necessary to do so. Talk to your waste salvager regarding the use of this medicine in children. Special care may be needed. What side effects may I notice from receiving this medicine? Side effects that you should report to your doctor or health medication care manager as soon as possible: allergic reactions like skin rash, itching or hives, swelling of the face, lips, or tongue breathing problems dizziness fast or irregular heartbeat feeling faint or lightheaded, falls fever and chills swelling of the hands and feet tightness in the chest Side effects that usually do not require medical attention (report to your doctor or health medication care manager if they continue or are bothersome): constipation or diarrhea headache What may interact with this medicine? Do not take this medicine with any of the following medications: -apomorphine -cisapride -dofetilide -dronedarone -pimozide -thioridazine -ziprasidone This medicine may also interact with the following medications: -carbamazepine -phenytoin -rifampicin -tramadol -other medicines that prolong the QT interval (cause an abnormal heart rhythm) What if I miss a dose? If you miss a dose, take it as soon as you can. If it is almost time for your next dose, take only that dose. Do not take double or extra doses. Where should I keep my medicine? Keep out of the reach of children. Store between 2 and 30 degrees C (36 and 86 degrees F). Throw away any unused medicine after the expiration date. What should I tell my health care provider before I take this medicine? They need to know if you have any of these conditions: heart disease history of irregular heartbeat liver disease low levels of magnesium or potassium in the blood an unusual or allergic reaction to ondansetron, granisetron, other medicines, foods, dyes, or preservatives or trying to get breast-feeding What should I watch for while using this medicine? Check with your doctor or health medication care manager as soon as you can if you have any sign of an allergic reaction. Oxycodone Hydrochloride, Acetaminophen Oral tablet What is this medicine? ACETAMINOPHEN; OXYCODONE (a set a RYAN neri fen; ox i KOE done) is a pain reliever. It is used to treat mild to moderate pain. How should I use this medicine? Take this medicine by mouth with a full glass of water. Follow the directions on the prescription label. Take your medicine at regular intervals. Do not take your medicine more often than directed. Talk to your waste salvager regarding the use of this medicine in children. Special care may be needed. Patients over 65 years old may have a stronger reaction and need a smaller dose. What side effects may I notice from receiving this medicine? Side effects that you should report to your doctor or health medication care manager as soon as possible: allergic reactions like skin rash, itching or hives, swelling of the face, lips, or tongue breathing difficulties, wheezing confusion light headedness or fainting spells severe stomach pain yellowing of the skin or the whites of the eyes Side effects that usually do not require medical attention (report to your doctor or health medication care manager if they continue or are bothersome): dizziness drowsiness nausea vomiting What may interact with this medicine? alcohol antihistamines barbiturates like amobarbital, butalbital, butabarbital, methohexital, pentobarbital, phenobarbital, thiopental, and secobarbital benztropine drugs for bladder problems like solifenacin, trospium, oxybutynin, tolterodine, hyoscyamine, and methscopolamine drugs for breathing problems like ipratropium and tiotropium drugs for certain stomach or intestine problems like propantheline, homatropine methylbromide, glycopyrrolate, atropine, belladonna, and dicyclomine general anesthetics like etomidate, ketamine, nitrous oxide, propofol, desflurane, enflurane, halothane, isoflurane, and sevoflurane medicines for depression, anxiety, or psychotic disturbances medicines for sleep muscle relaxants naltrexone narcotic medicines (opiates) for pain phenothiazines like perphenazine, thioridazine, chlorpromazine, mesoridazine, fluphenazine, prochlorperazine, promazine, and trifluoperazine scopolamine tramadol trihexyphenidyl What if I miss a dose? If you miss a dose, take it as soon as you can. If it is almost time for your next dose, take only that dose. Do not take double or extra doses. Where should I keep my medicine? Keep out of the reach of children. This medicine can be abused. Keep your medicine in a safe place to protect it from theft. Do not share this medicine with anyone. Selling or giving away this medicine is dangerous and against the law. Store at room temperature between 20 and 25 degrees C (68 and 77 degrees F). Keep container tightly closed. Protect from light. This medicine may cause accidental overdose and if it is taken by other adults, children, or pets. Flush any unused medicine down the toilet to reduce the chance of harm. Do not use the medicine after the expiration date. What should I tell my health care provider before I take this medicine? They need to know if you have any of these conditions: brain tumor Crohn's disease, inflammatory bowel disease, or ulcerative colitis drink more than 3 alcohol containing drinks per day drug abuse or addiction head injury heart or circulation problems kidney disease or problems going to the bathroom liver disease lung disease, asthma, or breathing problems an unusual or allergic reaction to acetaminophen, oxycodone, other opioid analgesics, other medicines, foods, dyes, or preservatives or trying to get breast-feeding What should I watch for while using this medicine? Tell your doctor or health medication care manager if your pain does not go away, if it gets worse, or if you have new or a different type of pain. You may develop tolerance to the medicine. Tolerance means that you will need a higher dose of the medication for pain relief. Tolerance is normal and is expected if you take this medicine for a long time. Do not suddenly stop taking your medicine because you may develop a severe reaction. Your body becomes used to the medicine. This does NOT mean you are addicted. Addiction is a behavior related to getting and using a drug for a non-medical reason. If you have pain, you have a medical reason to take pain medicine. Your doctor will tell you how much medicine to take. If your doctor wants you to stop the medicine, the dose will be slowly lowered over time to avoid any side effects. You may get drowsy or dizzy. Do not drive, use machinery, or do anything that needs mental alertness until you know how this medicine affects you. Do not stand or sit up quickly, especially if you are an older patient. This reduces the risk of dizzy or fainting spells. Alcohol may interfere with the effect of this medicine. Avoid alcoholic drinks. There are different types of narcotic medicines (opiates) for pain. If you take more than one type at the same time, you may have more side effects. Give your health care provider a list of all medicines you use. Your doctor will tell you how much medicine to take. Do not take more medicine than directed. Call emergency for help if you have problems breathing. The medicine will cause constipation. Try to have a bowel movement at least every 2 to 3 days. If you do not have a bowel movement for 3 days, call your doctor or health medication care manager. Do not take Tylenol (acetaminophen) or medicines that have acetaminophen with this medicine. Too much acetaminophen can be very dangerous. Many nonprescription medicines contain acetaminophen. Always read the labels carefully to avoid taking more acetaminophen. You have been given the following additional information: Abdominal Pain, Unknown Cause, (Female) Vomiting (6Y-Adult) Diarrhea, Unk Cause (Adult) Report Pendg Ondansetron Oral disintegrating tablet Oxycodone Hydrochloride, Acetaminophen Oral tablet (Electronically signed by Chilo Marie Dr. 06/05/2016 4:04)
--- NOTE | 2016-06-05 04:04 | ED MAR SUMMARY ---
..... Medication Administration Record [facility] [address] [place] [address] Patient: ROXANNE CAMPBELL Visit ID: [id number] 55y, F Weight: 61.2 kg Height/Length: 69 in BMI: 19.9 ALLERGIES: Amoxicillin, Phenergan Start 16:17 06/03/2016 Simona Lo R.N., Stop 18:33 06/03/2016 Simona Lo R.N. Medication Administered: IV NS (SALINE), Dose: IV Fluids over 1 hour(s), Rate: 1000 mL/hr, Dispensed: 1000 mL bag, Site: #1 right forearm. Medication Ordered: IV NS : initial bolus 1000 mL (1000 mL/hr), then none - for X1 (NOW). Given 16:17 06/03/2016 Simona Lo R.N. Medication Administered: MORPHINE [IVP], Dose: 8 mg IVP over 2 minute(s), Site: #1 right forearm. Medication Ordered: Morphine IV 8 mg (HIGH ALERT MEDICATION, NOW). Given 16:18 06/03/2016 Simona Lo R.N. Medication Administered: ZOFRAN [IVP] (ONDANSETRON HCL), Dose: 4 mg IVP over 1 minute(s), Site: #1 right forearm. Medication Ordered: Zofran IV 4 mg (NOW). Given 19:47 06/03/2016 Eleni Molina R.N. Medication Administered: MORPHINE [IVP], Dose: 8 mg IVP over 2 minute(s), Site: #1 right forearm. Medication Ordered: Morphine IV 8 mg (HIGH ALERT MEDICATION, NOW).
--- NOTE | 2016-06-05 04:04 | ED MED RECONCILIATION SUMMARY ---
Patient: ROXANNE CAMPBELL Medication Reconciliation Report [facility] VisitID: [id number] [address] [place] [address] 55y, F Registration Date/Time: 06/03/2016 Weight: 61.2 kg Height/Length: 69 in. BMI: 19.9 ALLERGIES: Amoxicillin, Phenergan The patient's Home Medications are listed below: CONTINUE TAKING THE FOLLOWING MEDICATIONS: [place] Thyroid Oral (180 mg) 1 tablet Cymbalta Oral Dicyclomine HCl Oral Reglan Oral The source(s) of the original Home Medication information: Not obtained. The following Medications were given to the patient in the Emergency Department: IV NS IV Fluids bolus 0, then 1000 mL/hr, administered: 06/03/2016 4:17:00 PM Morphine [IVP] IVP 8 mg, administered: 06/03/2016 4:17:00 PM Zofran [IVP] IVP 4 mg, administered: 06/03/2016 4:18:00 PM Morphine [IVP] IVP 8 mg, administered: 06/03/2016 7:47:00 PM The following Medications were prescribed to the patient: Zofran (orally disintegrating tablets) 4 mg: take 1 orally every 8 hours as needed for nausea and vomiting. Dispense ten (10). No refill. Substitution is permissible. -- Chilo Marie Dr. Oxycodone 5 mg tablets: take 1 orally every 6 hours as needed for pain. Dispense fifteen (15). No refill. -- Chilo Marie Dr.
--- NOTE | 2016-06-05 04:04 | ED MAR SUMMARY ---
..... Medication Administration Record [facility] [address] [place] [address] Patient: ROXANNE CAMPBELL Visit ID: [id number] 55y, F Weight: 61.2 kg Height/Length: 69 in BMI: 19.9 ALLERGIES: Amoxicillin, Phenergan Start 16:17 06/03/2016 Simona Lo R.N., Stop 18:33 06/03/2016 Simona Lo R.N. Medication Administered: IV NS (SALINE), Dose: IV Fluids over 1 hour(s), Rate: 1000 mL/hr, Dispensed: 1000 mL bag, Site: #1 right forearm. Medication Ordered: IV NS : initial bolus 1000 mL (1000 mL/hr), then none - for X1 (NOW). Given 16:17 06/03/2016 Simona Lo R.N. Medication Administered: MORPHINE [IVP], Dose: 8 mg IVP over 2 minute(s), Site: #1 right forearm. Medication Ordered: Morphine IV 8 mg (HIGH ALERT MEDICATION, NOW). Given 16:18 06/03/2016 Simona Lo R.N. Medication Administered: ZOFRAN [IVP] (ONDANSETRON HCL), Dose: 4 mg IVP over 1 minute(s), Site: #1 right forearm. Medication Ordered: Zofran IV 4 mg (NOW). Given 19:47 06/03/2016 Eleni Molina R.N. Medication Administered: MORPHINE [IVP], Dose: 8 mg IVP over 2 minute(s), Site: #1 right forearm. Medication Ordered: Morphine IV 8 mg (HIGH ALERT MEDICATION, NOW).
--- NOTE | 2016-06-05 04:04 | ED MED RECONCILIATION SUMMARY ---
Patient: ROXANNE CAMPBELL Medication Reconciliation Report [facility] VisitID: [id number] [address] [place] [address] 55y, F Registration Date/Time: 06/03/2016 Weight: 61.2 kg Height/Length: 69 in. BMI: 19.9 ALLERGIES: Amoxicillin, Phenergan The patient's Home Medications are listed below: CONTINUE TAKING THE FOLLOWING MEDICATIONS: [place] Thyroid Oral (180 mg) 1 tablet Cymbalta Oral Dicyclomine HCl Oral Reglan Oral The source(s) of the original Home Medication information: Not obtained. The following Medications were given to the patient in the Emergency Department: IV NS IV Fluids bolus 0, then 1000 mL/hr, administered: 06/03/2016 4:17:00 PM Morphine [IVP] IVP 8 mg, administered: 06/03/2016 4:17:00 PM Zofran [IVP] IVP 4 mg, administered: 06/03/2016 4:18:00 PM Morphine [IVP] IVP 8 mg, administered: 06/03/2016 7:47:00 PM The following Medications were prescribed to the patient: Zofran (orally disintegrating tablets) 4 mg: take 1 orally every 8 hours as needed for nausea and vomiting. Dispense ten (10). No refill. Substitution is permissible. -- Chilo Marie Dr. Oxycodone 5 mg tablets: take 1 orally every 6 hours as needed for pain. Dispense fifteen (15). No refill. -- Chilo Marie Dr.
== END 2016-06-03 20:30 | disposition home or self-care (01) ==
LOC: ED SRH 15:53
DX: R10.30 Lower abdominal pain, unspecified (principal); R11.2 Nausea with vomiting, unspecified; R19.7 Diarrhea, unspecified; K86.2 Cyst of pancreas; R94.5 Abnormal results of liver function studies
CPT/HCPCS: 90004; 90100; 92235; 92760; 92761; 92762; 92763; 92764; 92765; 92766; 92767; 93070; 95059

== ENCOUNTER 2016-06-09 10:34 | Emergency (ER) | payer OTHER ==
--- NOTE | 2016-06-09 13:43 | DIAGNOSTIC IMAGING REPORT ---
PROCEDURE: CT ABD/PELVIS WITH CONTRAST CLINICAL INDICATION: Severe epigastric pain, initial encounter. TECHNIQUE: 100 ml of Isovue 300 were injected intravenously and axial images were obtained of the entire abdomen and pelvis with sagittal and coronal reformations. COMPARISON: CT abdomen/pelvis 06/03/2016 FINDINGS: ABDOMEN: Status post Jannette fundoplication with moderate distention of the stomach. Diminutive pancreas with stable 3.9 cm cyst. Hepatic patchy steatosis. Gallbladder, adrenal glands and the kidneys are unremarkable. Tortuous abdominal aorta. Moderate stool. 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 Interrupted IVC. PELVIS: Right lower quadrant surgical clips. Mild diverticulosis. Hysterectomy. Adnexa and bladder are unremarkable. There is no free fluid or inflammatory change. Right inguinal surgical changes. Moderate to severe L4-5 and L5-S1 degenerative changes. IMPRESSION: 1. Status post Jannette fundoplication 2. Moderately distended stomach 3. Stable 3.9 cm pancreatic cyst. This may represent a pseudocyst or possibly a benign cystic neoplasm. 4. Bowel malrotation 5. Hysterectomy and probable appendectomy. 6. Results discussed with Dr. Conklin All CT scans at this facility use dose modulation, iterative reconstruction, and/or weight-based dosing when appropriate to reduce radiation dose to as low as reasonably achievable.
--- NOTE | 2016-06-09 20:03 | ED NURSING NOTES ---
Clinical Report - Nurses [facility] [address] [place] [address] 06/09/2016 10:48 Patient: ROXANNE CAMPBELL TRIAGE Acuity: LEVEL 3. Chief Complaint: ABDOMINAL PAIN, NAUSEA and VOMITING. Alert. No acute distress. SEPSIS SCREEN: Sepsis Screen. Negative (no infection suspected/documented). --10:58 Yeny Eugene R.N. 10:52 06/09/16. BP: 187/122. HR: 108. RR: 22. O2 saturation: 100% on room air. Temp: 97.8 F (oral). Pain level now: 01/08. --10:58 Yeny Eugene R.N. Weight: 61.2 kg stated. Height/Length: 69 inches Per Patient. BMI: 19.9. --10:54 Yeny Eugene R.N. Medications [place] Thyroid Oral (Tablet 180 mg) 1 tablet. Cymbalta Oral. Dicyclomine HCl Oral. Reglan Oral. --10:54 Yeny Eugene R.N. Medication/allergy information source: the patient. --10:58 Yeny Eugene R.N. Allergies Amoxicillin. Mild(diarrhea) Phenergan. Moderate(itching) (IV form, pt has taken PO and [place]) --10:54 Yeny Eugene R.N. History Arrived by EMS. Historian: patient. Unaccompanied. Primary physician ([place]). This started yesterday. Treatment TIMBER MANAGEMENT PROFESSOR: None. PAST MEDICAL HX: The patient has had a hysterectomy. SOCIAL HX: Smoker- current status unknown. No alcohol use or drug use. FALL RISK ASSESSMENT: Fall risk assessment completed. No fall risk identified. NUTRITIONAL RISK ASSESSMENT: The nutritional risk assessment revealed no deficiencies. FUNCTIONAL ASSESSMENT: Functional assessment: no impairments noted. LEARNING NEEDS ASSESSMENT: The learning needs assessment revealed no barriers. SKIN INTEGRITY ASSESSMENT: Skin integrity risk assessment completed. No skin integrity risk identified. --10:58 Yeny Eugene R.N. PROBLEMS: Diarrhea. Vomiting. Hiatal Hernia. UTI - Urinary Tract Infection. Fibromyalgia. Chronic Headache. Abdominal Pain. Gastritis. Hypokalemia. Gastroesophageal Reflux Disease. Twisted Bowel. Sinusitis. Lifestyle / Substance Problems. Sinus Problems. Headache. ? stomach problems. Migraine Headache. --10:54 Yeny Eugene R.N. ADDITIONAL SURGERIES: Bladder Suspension. Hiatal hernia. Hysterectomy. Previous Abdominal Surgery. --10:54 Yeny Eugene R.N. Assessment GENERAL / NEURO / PSYCH: Alert. Oriented X 4. Appears in pain and anxious. [place] Coma Scale: 15- eyes open spontaneously (4); best verbal response- oriented x 4 (5); best motor response- obeys commands (6). RESPIRATORY: Respirations not labored. CVS: Capillary refill less than 2 seconds. GI / : Abdomen soft. Abdominal tenderness. SKIN: Mucous membranes are pink. Skin is warm and dry. --10:58 Yeny Eugene R.N. Interventions ID band on patient. To treatment room. --10:58 Yeny Eugene R.N. PHYSICAL ASSESSMENT 10:58 06/09/16. To room via stretcher. GENERAL / NEURO / PSYCH: Alert. Oriented X 4. Appears in no acute distress. HEENT: Mucous membranes are pink. RESPIRATORY: Respirations not labored. CVS: Capillary refill less than 2 seconds. GI / : Abdominal tenderness. SKIN: Skin is warm and dry. --10:58 Yeny Eugene R.N. 11:07 06/09/16. CVS: Cardiac rhythm: sinus tachycardia. --11:07 Yeny Eugene R.N. NURSING PROGRESS NOTES 10:59 06/09/16. campus monitor, pulse oximeter and NIBP monitor placed on patient; monitor alarms on. Patient gowned. Two patient identifiers checked. Call light placed in reach. Side rails up x 1. Bed placed in lowest position. Brakes of bed on. Patient ready for evaluation- chart flagged and ED physician notified. --10:59 Yeny Eugene R.N. 11:06 06/09/2016 Site #1 started via IV in the right antecubital space with an 20g angiocath, with aseptic technique and good blood return; one attempt. Blood drawn: rainbow set. Labeled in the presence of the patient and sent to the lab. Saline lock flushed with 10 mL saline. --11:06 Yeny Eugene R.N. 11:06 06/09/16. EKG time: (1107). EKG was performed by a tech and shown to the ED physician. --11:06 Yeny Eugene R.N. 11:30 06/09/2016 Started bag #1 900 mL IV Fluids IV NS (Saline); at 250 mL/hr over 4 hour(s) via site #1 via IV pump. Allergies verified and confirmed 5 rights. IV patency established. IV site checked: no pain, redness, or swelling. IV flushed thoroughly pre- and post-medication administration. --11:40 Yeny Eugene R.N. 11:35 06/09/2016 Zofran (Ondansetron HCl) IVP 4 mg given over 1 minute(s) via site #1. Allergies verified and confirmed 5 rights. IV patency established. IV site checked: no pain, redness, or swelling. IV flushed thoroughly pre- and post-medication administration. IVP given by RN. --11:40 Yeny Eugene R.N. 11:35 06/09/2016 Ativan (LORazepam) IVP 0.5 mg given over 1 minute(s) via site #1. Allergies verified, confirmed 5 rights and sedative warning given to the patient. IV patency established. IV site checked: no pain, redness, or swelling. IV flushed thoroughly pre- and post-medication administration. IVP given by RN. --11:40 Yeny Eugene R.N. 11:41 06/09/2016 Dilaudid (HYDROmorphone HCl PF) IVP 0.5 mg given over 1 minute(s) via site #1. Allergies verified, confirmed 5 rights and sedative warning given to the patient. IV patency established. IV site checked: no pain, redness, or swelling. IV flushed thoroughly pre- and post-medication administration. IVP given by RN. --11:41 Yeny Eugene R.N. 11:46 06/09/2016 Dilaudid (HYDROmorphone HCl PF) IVP 0.5 mg given over 1 minute(s) via site #1. Allergies verified, confirmed 5 rights and sedative warning given to the patient. IV patency established. IV site checked: no pain, redness, or swelling. IV flushed thoroughly pre- and post-medication administration. IVP given by RN. --11:46 Yeny Eugene R.N. 12:23 06/09/2016 Ativan (LORazepam) IVP 1 mg given over 2 minute(s) via site #1. Allergies verified, confirmed 5 rights and sedative warning given to the patient. IV patency established. IV site checked: no pain, redness, or swelling. IV flushed thoroughly pre- and post-medication administration. IVP given by RN. --12:23 Yeny Eugene R.N. 12:06/09/2016 Dilaudid (HYDROmorphone HCl PF) IVP 0.5 mg given over 1 minute(s) via site #1. Allergies verified, confirmed 5 rights and sedative warning given to the patient. IV patency established. IV site checked: no pain, redness, or swelling. IV flushed thoroughly pre- and post-medication administration. IVP given by RN. --12:23 Yeny Eugene R.N. 12:24 06/09/2016 Zofran (Ondansetron HCl) IVP 4 mg given over 1 minute(s) via site #1. Allergies verified and confirmed 5 rights. IV patency established. IV site checked: no pain, redness, or swelling. IV flushed thoroughly pre- and post-medication administration. IVP given by RN. --12:24 Yeny Eugene R.N. 12:47 06/09/16. Patient transported to [place] by stretcher with Spotsetter. --12:47 Yeny Eugene R.N. 13:06/09/16. BP: 144/94. HR: 123. RR: 18. O2 saturation: 95% on room air. --13:23 Yeny Eugene R.N. <<STRICKEN ENTRY-- Immobilizer applied to the left knee by testing and regulating technician; distal pulses intact, sensation intact and motor function within normal limits. Patient fit with new crutches. Crutch training performed by tech; the patient demonstrated proper use. --13:50 [place], Amy --END STRIKE>> Charted On Wrong Patient --13:51 Amy Parada 14:07 06/09/16. ( Pt ambulated to to provide sample.). --14:07 Yeny Eugene R.N. 14:13 06/09/16. Checked patient name and birthdate: patient confirmed. Instructions provided to collect clean catch urine and patient verbalized understanding. Clean catch urine collected with return of yellow-colored clear urine; sample sent to lab for urinalysis and drug screen. Specimen labeled in the presence of the patient. --14:13 Yeny Eugene R.N. 14:52 06/09/2016 Ativan (LORazepam) IVP 0.5 mg given over 1 minute(s) via site #1. Allergies verified, confirmed 5 rights and sedative warning given to the patient. IV patency established. IV site checked: no pain, redness, or swelling. IV flushed thoroughly pre- and post-medication administration. IVP given by RN. --15:07 Yeny Eugene R.N. 14:52 06/09/2016 Dilaudid (HYDROmorphone HCl PF) IVP 0.5 mg given over 1 minute(s) via site #1. Allergies verified, confirmed 5 rights and sedative warning given to the patient. IV patency established. IV site checked: no pain, redness, or swelling. IV flushed thoroughly pre- and post-medication administration. IVP given by RN. --15:07 Yeny Eugene R.N. 14:53 06/09/2016 Zofran (Ondansetron HCl) IVP 4 mg given over 1 minute(s) via site #1. Allergies verified and confirmed 5 rights. IV patency established. IV site checked: no pain, redness, or swelling. IV flushed thoroughly pre- and post-medication administration. IVP given by RN. --15:08 Yeny Eugene R.N. 15:08 06/09/16. 18 fr NG tube inserted in right nostril with no difficulty. Placement confirmed by return of gastric contents. Return: yellow, green fluid. Attached to low and intermittent suction. Patient tolerated procedure well. --15:08 Yeny Eugene R.N. 16:13 06/09/2016 PROTONIX (Pantoprazole Sodium) IVP 80 mg given over 5 minute(s) via site #1. Allergies verified and confirmed 5 rights. IV patency established. IV site checked: no pain, redness, or swelling. IV flushed thoroughly pre- and post-medication administration. IVP given by RN. --16:39 Yeny Eugene R.N. 16:46 06/09/16. BP: 136/95. HR: 116. RR: 16. O2 saturation: 97% on room air. --16:49 Yeny Eugene R.N. 17:44 06/09/16. BP: 142/72. HR: 114. RR: 16. O2 saturation: 96% on room air. --17:45 Yeny Eugene R.N. 15:30 06/09/2016 IV Fluids IV NS Discontinued: bag #1 infused. Total amount infused: 1000 mL. IV patency established. IV site checked: no pain, redness, or swelling. IV flushed thoroughly. --17:45 Yeny Eugene R.N. 17:21 06/09/2016 PROTONIX IVP Response: no adverse reaction symptoms have improved the patient feels better. --17:46 Yeny Eugene R.N. 19:14 06/09/16. Care transferred and report given (Kailyn, ED RN). --19:14 Yeny Eugene R.N. 19:15 06/09/16. NG tube inserted. (suction discontunued, but tube in place. Total output 500 mL.). --19:15 Yeny Eugene R.N. ( removed NG tube, pt tolerated well). --20:24 Marck Herring 20:24 06/09/2016 Site #1 removed upon discharge. Catheter intact. Bandage applied. --20:24 Marck Herring DISPOSITION / DISCHARGE Condition at departure: improved. No learning barriers present. Discharge instructions provided and reviewed with the patient. Treatments reviewed. Reviewed referrals. Follow up contact number. Patient verbalized understanding. Written instructions provided in Thai. The patient was discharged by the physician. She was discharged home and accompanied by blackjack supervisor. She left the Emergency Department ambulatory and via private vehicle. Entertainment Lawyer driving. FALL RISK ASSESSMENT: Fall risk assessment completed. No fall risk identified. --20:29 Marck Herring 20:28 06/09/16. BP: 146/72. HR: 69. RR: 18. O2 saturation: 98%. Temp: 98.4 F. Pain level now: 05/11. --20:29 Marck Herring Departure time: 20:56. --20:57 Marck Herring Locked/Released at 06/09/2016 20:57 by Marck Herring
--- NOTE | 2016-06-09 20:03 | ED NURSING NOTES ---
Clinical Report - Nurses [facility] [address] [place] [address] 06/09/2016 10:48 Patient: ROXANNE CAMPBELL TRIAGE Acuity: LEVEL 3. Chief Complaint: ABDOMINAL PAIN, NAUSEA and VOMITING. Alert. No acute distress. SEPSIS SCREEN: Sepsis Screen. Negative (no infection suspected/documented). --10:58 Yeny Eugene R.N. 10:52 06/09/16. BP: 187/122. HR: 108. RR: 22. O2 saturation: 100% on room air. Temp: 97.8 F (oral). Pain level now: 01/08. --10:58 Yeny Eugene R.N. Weight: 61.2 kg stated. Height/Length: 69 inches Per Patient. BMI: 19.9. --10:54 Yeny Eugene R.N. Medications [place] Thyroid Oral (Tablet 180 mg) 1 tablet. Cymbalta Oral. Dicyclomine HCl Oral. Reglan Oral. --10:54 Yeny Eugene R.N. Medication/allergy information source: the patient. --10:58 Yeny Eugene R.N. Allergies Amoxicillin. Mild(diarrhea) Phenergan. Moderate(itching) (IV form, pt has taken PO and ME) --10:54 Yeny Eugene R.N. History Arrived by EMS. Historian: patient. Unaccompanied. Primary physician (Sea). This started yesterday. 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 PAST MEDICAL HX: The patient has had a hysterectomy. SOCIAL HX: Smoker- current status unknown. No alcohol use or drug use. FALL RISK ASSESSMENT: Fall risk assessment completed. No fall risk identified. NUTRITIONAL RISK ASSESSMENT: The nutritional risk assessment revealed no deficiencies. FUNCTIONAL ASSESSMENT: Functional assessment: no impairments noted. LEARNING NEEDS ASSESSMENT: The learning needs assessment revealed no barriers. SKIN INTEGRITY ASSESSMENT: Skin integrity risk assessment completed. No skin integrity risk identified. --10:58 Yeny Eugene R.N. PROBLEMS: Diarrhea. Vomiting. Hiatal Hernia. UTI - Urinary Tract Infection. Fibromyalgia. Chronic Headache. Abdominal Pain. Gastritis. Hypokalemia. Gastroesophageal Reflux Disease. Twisted Bowel. Sinusitis. Lifestyle / Substance Problems. Sinus Problems. Headache. ? stomach problems. Migraine Headache. --10:54 Yeny Eugene R.N. ADDITIONAL SURGERIES: Bladder Suspension. Hiatal hernia. Hysterectomy. Previous Abdominal Surgery. --10:54 Yeny Eugene R.N. Assessment GENERAL / NEURO / PSYCH: Alert. Oriented X 4. Appears in pain and anxious. [place] Coma Scale: 15- eyes open spontaneously (4); best verbal response- oriented x 4 (5); best motor response- obeys commands (6). RESPIRATORY: Respirations not labored. CVS: Capillary refill less than 2 seconds. GI / : Abdomen soft. Abdominal tenderness. SKIN: Mucous membranes are pink. Skin is warm and dry. --10:58 Yeny Eugene R.N. Interventions ID band on patient. To treatment room. --10:58 Yeny Eugene R.N. PHYSICAL ASSESSMENT 10:58 06/09/16. To room via stretcher. GENERAL / NEURO / PSYCH: Alert. Oriented X 4. Appears in no acute distress. HEENT: Mucous membranes are pink. RESPIRATORY: Respirations not labored. CVS: Capillary refill less than 2 seconds. GI / : Abdominal tenderness. SKIN: Skin is warm and dry. --10:58 Yeny Eugene R.N. 11:07 06/09/16. CVS: Cardiac rhythm: sinus tachycardia. --11:07 Yeny Eugene R.N. NURSING PROGRESS NOTES 10:59 06/09/16. air sampling and monitoring, pulse oximeter and NIBP monitor placed on patient; monitor alarms on. Patient gowned. Two patient identifiers checked. Call light placed in reach. Side rails up x 1. Bed placed in lowest position. Brakes of bed on. Patient ready for evaluation- chart flagged and ED physician notified. --10:59 Yeny Eugene R.N. 11:06 06/09/2016 Site #1 started via IV in the right antecubital space with an 20g angiocath, with aseptic technique and good blood return; one attempt. Blood drawn: rainbow set. Labeled in the presence of the patient and sent to the lab. Saline lock flushed with 10 mL saline. --11:06 Yeny Eugene R.N. 11:06 06/09/16. EKG time: (1107). EKG was performed by a tech and shown to the ED physician. --11:06 Yeny Eugene R.N. 11:30 06/09/2016 Started bag #1 900 mL IV Fluids IV NS (Saline); at 250 mL/hr over 4 hour(s) via site #1 via IV pump. Allergies verified and confirmed 5 rights. IV patency established. IV site checked: no pain, redness, or swelling. IV flushed thoroughly pre- and post-medication administration. --11:40 Yeny Eugene R.N. 11:35 06/09/2016 Zofran (Ondansetron HCl) IVP 4 mg given over 1 minute(s) via site #1. Allergies verified and confirmed 5 rights. IV patency established. IV site checked: no pain, redness, or swelling. IV flushed thoroughly pre- and post-medication administration. IVP given by RN. --11:40 Yeny Eugene R.N. 11:35 06/09/2016 Ativan (LORazepam) IVP 0.5 mg given over 1 minute(s) via site #1. Allergies verified, confirmed 5 rights and sedative warning given to the patient. IV patency established. IV site checked: no pain, redness, or swelling. IV flushed thoroughly pre- and post-medication administration. IVP given by RN. --11:40 Yeny Eugene R.N. 11:41 06/09/2016 Dilaudid (HYDROmorphone HCl PF) IVP 0.5 mg given over 1 minute(s) via site #1. Allergies verified, confirmed 5 rights and sedative warning given to the patient. IV patency established. IV site checked: no pain, redness, or swelling. IV flushed thoroughly pre- and post-medication administration. IVP given by RN. --11:41 Yeny Eugene R.N. 11:46 06/09/2016 Dilaudid (HYDROmorphone HCl PF) IVP 0.5 mg given over 1 minute(s) via site #1. Allergies verified, confirmed 5 rights and sedative warning given to the patient. IV patency established. IV site checked: no pain, redness, or swelling. IV flushed thoroughly pre- and post-medication administration. IVP given by RN. --11:46 Yeny Eugene R.N. 12:23 06/09/2016 Ativan (LORazepam) IVP 1 mg given over 2 minute(s) via site #1. Allergies verified, confirmed 5 rights and sedative warning given to the patient. IV patency established. IV site checked: no pain, redness, or swelling. IV flushed thoroughly pre- and post-medication administration. IVP given by RN. --12:23 Yeny Eugene R.N. 12:06/09/2016 Dilaudid (HYDROmorphone HCl PF) IVP 0.5 mg given over 1 minute(s) via site #1. Allergies verified, confirmed 5 rights and sedative warning given to the patient. IV patency established. IV site checked: no pain, redness, or swelling. IV flushed thoroughly pre- and post-medication administration. IVP given by RN. --12:23 Yeny Eugene R.N. 12:24 06/09/2016 Zofran (Ondansetron HCl) IVP 4 mg given over 1 minute(s) via site #1. Allergies verified and confirmed 5 rights. IV patency established. IV site checked: no pain, redness, or swelling. IV flushed thoroughly pre- and post-medication administration. IVP given by RN. --12:24 Yeny Eugene R.N. 12:47 06/09/16. Patient transported to [place] by stretcher with [employer]. --12:47 Yeny Eugene R.N. 13:06/09/16. BP: 144/94. HR: 123. RR: 18. O2 saturation: 95% on room air. --13:23 Yeny Eugene R.N. <<STRICKEN ENTRY-- Immobilizer applied to the left knee by plastic technician; distal pulses intact, sensation intact and motor function within normal limits. Patient fit with new crutches. Crutch training performed by tech; the patient demonstrated proper use. --13:50 Karuga, Amy --END STRIKE>> Charted On Wrong Patient --13:51 Amy Parada 14:07 06/09/16. ( Pt ambulated to to provide sample.). --14:07 Yeny Eugene R.N. 14:13 06/09/16. Checked patient name and birthdate: patient confirmed. Instructions provided to collect clean catch urine and patient verbalized understanding. Clean catch urine collected with return of yellow-colored clear urine; sample sent to lab for urinalysis and drug screen. Specimen labeled in the presence of the patient. --14:13 Yeny Eugene R.N. 14:52 06/09/2016 Ativan (LORazepam) IVP 0.5 mg given over 1 minute(s) via site #1. Allergies verified, confirmed 5 rights and sedative warning given to the patient. IV patency established. IV site checked: no pain, redness, or swelling. IV flushed thoroughly pre- and post-medication administration. IVP given by RN. --15:07 Yeny Eugene R.N. 14:52 06/09/2016 Dilaudid (HYDROmorphone HCl PF) IVP 0.5 mg given over 1 minute(s) via site #1. Allergies verified, confirmed 5 rights and sedative warning given to the patient. IV patency established. IV site checked: no pain, redness, or swelling. IV flushed thoroughly pre- and post-medication administration. IVP given by RN. --15:07 Yeny Eugene R.N. 14:53 06/09/2016 Zofran (Ondansetron HCl) IVP 4 mg given over 1 minute(s) via site #1. Allergies verified and confirmed 5 rights. IV patency established. IV site checked: no pain, redness, or swelling. IV flushed thoroughly pre- and post-medication administration. IVP given by RN. --15:08 Yeny Eugene R.N. 15:08 06/09/16. 18 fr NG tube inserted in right nostril with no difficulty. Placement confirmed by return of gastric contents. Return: yellow, green fluid. Attached to low and intermittent suction. Patient tolerated procedure well. --15:08 Yeny Eugene R.N. 16:13 06/09/2016 PROTONIX (Pantoprazole Sodium) IVP 80 mg given over 5 minute(s) via site #1. Allergies verified and confirmed 5 rights. IV patency established. IV site checked: no pain, redness, or swelling. IV flushed thoroughly pre- and post-medication administration. IVP given by RN. --16:39 Yeny Eugene R.N. 16:46 06/09/16. BP: 136/95. HR: 116. RR: 16. O2 saturation: 97% on room air. --16:49 Yeny Eugene R.N. 17:44 06/09/16. BP: 142/72. HR: 114. RR: 16. O2 saturation: 96% on room air. --17:45 Yeny Eugene R.N. 15:30 06/09/2016 IV Fluids IV NS Discontinued: bag #1 infused. Total amount infused: 1000 mL. IV patency established. IV site checked: no pain, redness, or swelling. IV flushed thoroughly. --17:45 Yeny Eugene R.N. 17:21 06/09/2016 PROTONIX IVP Response: no adverse reaction symptoms have improved the patient feels better. --17:46 Yeny Eugene R.N. 19:14 06/09/16. Care transferred and report given (Kailyn, ED RN). --19:14 Yeny Eugene R.N. 19:15 06/09/16. NG tube inserted. (suction discontunued, but tube in place. Total output 500 mL.). --19:15 Yeny Eugene R.N. ( removed NG tube, pt tolerated well). --20:24 Marck Herring 20:24 06/09/2016 Site #1 removed upon discharge. Catheter intact. Bandage applied. --20:24 Marck Herring DISPOSITION / DISCHARGE Condition at departure: improved. No learning barriers present. Discharge instructions provided and reviewed with the patient. Treatments reviewed. Reviewed referrals. Follow up contact number. Patient verbalized understanding. Written instructions provided in Bangladeshi. The patient was discharged by the physician. She was discharged home and accompanied by kitman. She left the Emergency Department ambulatory and via private vehicle. Chocolate Finisher driving. FALL RISK ASSESSMENT: Fall risk assessment completed. No fall risk identified. --20:29 Marck Herring 20:28 06/09/16. BP: 146/72. HR: 69. RR: 18. O2 saturation: 98%. Temp: 98.4 F. Pain level now: 05/11. --20:29 Marck Herring Departure time: 20:56. --20:57 Marck Herring Locked/Released at 06/09/2016 20:57 by Marck Herring
--- NOTE | 2016-06-09 20:03 | ED CLINICAL REPORT ---
Clinical Report - Physicians/Mid Levels [facility] [address] [place] [address] 06/09/2016 10:48 Patient: ROXANNE CAMPBELL Time Seen: 11:28 Jun 09 2016. Arrived- By ambulance. Historian- patient and EMS personnel. CPT: ER phys charges level 5 (#[id number]). HISTORY OF PRESENT ILLNESS Chief Complaint: ABDOMINAL PAIN and VOMITING. It is described as located in the upper abdomen and in the periumbilical area. At its maximum, severity described as 8 / 10. When seen in the E.D., severity described as severe and 10 / 10. Modifying factors- worsened by movement. Not relieved by anything. 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 and is still present and worsening. The patient has had nausea and vomiting. Similar symptoms previously: Several times, milder. Recent medical care: The patient was seen recently at this facility and another facility in the emergency department. REVIEW OF SYSTEMS No constipation, black stools, hematemesis, difficulty with urination or pain with urination. No urinary frequency, fever, sore throat, chest pain or difficulty breathing. No cough, joint pain, skin rash or chills. All systems otherwise negative, except as recorded above. PAST HISTORY No history of peptic ulcer. No history of gallstones or bowel obstruction. Has not had urinary calculi. Medications: [place] Thyroid Oral (Tablet 180 mg) 1 tablet. Cymbalta Oral. Dicyclomine HCl Oral. Reglan Oral. Allergies: Amoxicillin. Mild(diarrhea) Phenergan. Moderate(itching) (IV form, pt has taken PO and CA). SOCIAL HISTORY No alcohol use or drug use. ADDITIONAL NOTES The nursing notes have been reviewed. PHYSICAL EXAM Vital Signs: 06/09/2016 10:52 BP: 187/122. HR: 108. RR: 22. O2 saturation: 100%. Temp: 97.8 F. Pain level now: 10/10. Appearance: Alert. Patient in mild distress. Eyes: Eyes normal inspection. ENT: Pharynx normal. Neck: Normal inspection. CVS: Normal heart rate and rhythm. Heart sounds normal. Pulses normal. Respiratory: No respiratory distress. Breath sounds normal. Chest nontender. Abdomen: Soft. Moderate tenderness in the upper abdomen. Abnormal bowel sounds: diminished. No mass. Back: Normal inspection. Skin: Normal skin color. No rash. Neuro: Oriented X 3. No motor deficit. No sensory deficit. LABS, X-RAYS, AND EKG EKG: Normal sinus rhythm. Rate: 113. Tachycardia. Normal P waves. Normal QRS complex. Non-specific ST segment / T wave abnormalities. The study has been interpreted contemporaneously. The study has been independently viewed by me. The EKG appears to be a good tracing. Abdominal CT: Distention of the stomach: Moderate. No apparent outlet obstruction. Malrotation of the bowel. APPY. Post-op no changes. 3.9 cm cysic pancreatic mass. Abdominal CT performed with IV contrast. The study was independently viewed by me, interpreted by the radiologist and discussed with the radiologist. Laboratory Tests: CBC w Diff: (KWASI: 06/09/2016 11:00) ( WagRcvd 06/09/2016 12:20) Final results Test Result Flag Units (Reference) WHITE BLOOD COUNT 6.3 K/uL (4.5-11.5) RED BLOOD COUNT 4.53 M/uL (4.00-5.20) HEMOGLOBIN 15.1 gm/dL (12.0-16.0) HEMATOCRIT 44.6 % (36.0-46.0) MEAN CELL VOLUME 98 fL (80-100) MEAN CORPUSCULAR HGB 33 pg (26-34) MEAN CORPUSCULAR HGB CONC 34 g/dL (31-37) RED CELL DISTRIBUTION WIDTH 17.2 H % (11.6-14.8) PLATELET COUNT 353 K/uL (150-400) NEUTROPHIL % 69.3 % (50-75) LYMPH % 20.5 L % (25-40) MONO % 8.0 % (3-14) EOSINOPHIL % 1.0 % (0-4) BASOPHIL % 1.2 % (0-2) Lipase: (KWASI: 06/09/2016 11:00) ( MsgRcvd 06/09/2016 12:26) Final results Test Result Flag Units (Reference) LIPASE 39 L U/L (73-393) AMYLASE 10 L U/L (25-115) CHEM 13 PANEL: (KWASI: 06/09/2016 11:00) ( MsgRcvd 06/09/2016 12:55) Final results Test Result Flag Units (Reference) GLUCOSE 121 H mg/dL (70-110) BUN 8 mg/dL (7-18) CREATININE 0.5 L mg/dL (0.6-1.3) Estimated GFR >60 mL/min Estimated GFR- >60 mL/min Note: Persistent reduction over 3 months in eGFR<60 mL/min/1.73 m2 defines CKD. Patients with eGFR values>=60 mL/min/1.73 m2 may also have CKD if evidence ofpersistent proteinuria. Additional information may be foundat www.kidney.org. SODIUM 135 L mmol/L (136-145) POTASSIUM 3.6 mmol/L (3.5-5.1) CHLORIDE 98 mmol/L (98-107) CARBON DIOXIDE 22 mmol/L (21-32) CALCIUM 9.3 mg/dL (8.5-10.1) TOTAL PROTEIN 8.1 g/dL (6.4-8.2) ALBUMIN 4.0 g/dL (3.3-5.0) BILIRUBIN, TOTAL 0.6 mg/dL (0.0-1.0) ALKALINE PHOSPHATASE 168 H U/L (46-116) AST (SGOT) 89 H U/L (15-37) ALT (SGPT) 50 U/L (12-78) MAGNESIUM 1.6 L mg/dL (1.8-2.4) CPK 40 U/L (24-260) TROPONIN I <0.05 ng/mL (0.00-1.5) TROPONIN REFERENCE RANGE:<0.1 NEGATIVE0.1-1.5 INDETERMINANT>1.5 POSITIVE . PROGRESS AND PROCEDURES Course of Care: CT ordered due to extreme change in pain since last visit 6 days ago. 13:43 06/09/16. CT report: No significant findings to explain pain. Stomach is very distended. Essentially unchanged since CT done 6 days ago. 14:51 06/09/16. Pt re-evaluated and is in no extremis now. Pain better. Pt notes she has been back to the ER 6 times in the past 5 weeks since surgery. She requests staying in the hospital until this problem is resolved. She doesn't want to have to come back to the ER again. The patient has had a distended stomach and probably due to some mild outlet obstruction. This is putting pressure on the surgical site and causing anorexia.she may have early ulceration in the antrum more proximal small bowel due to stress from surgery or anxiety. Discussed the strategy of emptying the out the stomach with an NG tube and started in the patient on GI meds for ulcerations. Discussed going home on clear liquids but pt insists she wants to be in the hospital until the problem is resolved due to her 6 ER visits over the same symptom. 18:35 06/09/16. Dr Davis returned page: He suggests admission by medicine and possible consult for scope if medicine felt it necessary. Dr Alegre contacted and notes no indication for admission. Discussed this with patient and made arrangements for discharge and close follow up with her surgeons. NG placed and 650 cc of material returned. Multiple doses of ativan and dilaudid until stomach drained. Pt then asked for dilaudid due to NG discomfort. This was refused. Protonix 80 mg IV. Patient/family counseled. Old medical records ordered. Disposition: Discharged. Condition: stable. CLINICAL IMPRESSION Abdominal pain due to gastric distention and antral gastritis with mild outlet obstruction. Congenital malrotation of the bowel. INSTRUCTIONS Take clear liquids only (frequent sips) today, for the next 12 hours until better. (After clear liquid diet advance to full liquid diet until cleared by your surgeon. Use percocet you have at home for pain.). Prescription Medications: Compazine 25 mg suppositories: every 8 hours as needed for nausea. Dispense ten (10). No refills. Substitution is permissible Carafate 1 gm tablets: take 1 orally four times daily (1 hour before meals and at bedtime). Dispense sixty (60). No refills. Substitution is permissible. Prilosec 40 mg capsules: take 1 capsule orally every day for 10 days. Dispense ten (10). No refill. Substitution is permissible. Alprazolam 0.5 mg: take 1 orally every 6 hours as needed for anxiety. Dispense ten (10). No refill. Follow-up: Follow up with a surgeon Saturday in three days as scheduled. Understanding of the discharge instructions verbalized by patient. (Electronically signed by Wes Conklin MD 06/11/2016 11:46)
--- NOTE | 2016-06-09 20:03 | ED ORDER SUMMARY ---
..... Patient: ROXANNE CAMPBELL OrderSheet [facility] VisitID: [id number] [place] [address] 55y, F Registration Date/Time: 06/09/2016 ORDER SHEET Weight: 61.2 kg (stated) Allergies: Amoxicillin, Phenergan GENERAL ORDERS: Cardiac Panel Stat (12:12 06/09/2016 Adrian GONZALEZ) (Ack 12:18 LTapper) (12:24 MWinterer R.N.) Amylase Urgent (12:12 06/09/2016 Adrian GONZALEZ) (Ack 12:18 LTapper) (12:24 MWinterer R.N.) Lipase Urgent (12:12 06/09/2016 Adrian GONZALEZ) (Ack 12:18 LTapper) (12:24 MWinterer R.N.) CT Abd/Pel w Cont (No) (pending) Urgent (12:13 06/09/2016 Adrian GONZALEZ) (Ack 12:18 LTapper) (13:23 MWinterer R.N.) UA-Culture if indicated Urgent (13:37 06/09/2016 Adrian GONZALEZ) (14:12 MWinterer R.N.) Urine Drug Screen Urgent (13:37 06/09/2016 Adrian GONZALEZ) (14:12 MWinterer R.N.) NG Tube (14:33 06/09/2016 Adrian GONZALEZ) (Ack 14:39 MWinterer R.N.) (15:06 MWinterer R.N.) MEDICATION ORDERS: IV FLUIDS: Dilaudid IV 0.5 mg (NOW) (Sched q5m for X2); Routine (pren) (Sched q5m for X2) (11:28 06/09/2016 Adrian GONZALEZ) (Ack 11:31 MWinterer R.N.) (11:41 MWinterer R.N.) Ativan IV 0.5 mg (NOW) (11:28 06/09/2016 Adrian GONZALEZ) (Ack 11:31 MWinterer R.N.) (11:40 MWinterer R.N.) Zofran IV 4 mg (NOW) (11:29 06/09/2016 Adrian GONZALEZ) (Ack 11:31 MWinterer R.N.) (11:40 MWinterer R.N.) Dilaudid IV 0.5 mg (NOW) (Sched q5m for X2); Routine (pren) (11:33 06/09/2016 Adrian GONZALEZ) (Ack 11:41 MWinterer R.N.) (11:46 MWinterer R.N.) IV NS : initial bolus none -, then 250 mL/hr (NOW) (11:37 06/09/2016 Jt R.N. verbal order read back to Adrian GONZALEZ) (11:40 MWinterer R.N.) Ativan IV 1 mg (NOW) (12:12 06/09/2016 Adrian GONZALEZ) (Ack 12:15 MWinterer R.N.) (12:23 MWinterer R.N.) Dilaudid IV 0.5 mg (NOW) (12:12 06/09/2016 Adrian GONZALEZ) (Ack 12:15 MWinterer R.N.) (12:23 MWinterer R.N.) Zofran IV 4 mg (NOW) (12:16 06/09/2016 Adrian GONZALEZ) (12:24 MWinterer R.N.) Ativan IV 0.5 mg (NOW) (14:32 06/09/2016 Adrian GONZALEZ) (Ack 14:39 MWinterer R.N.) (15:07 MWinterer R.N.) Dilaudid IV 0.5 mg (NOW) (14:32 06/09/2016 Adrian GONZALEZ) (Ack 14:39 MWinterer R.N.) (15:07 MWinterer R.N.) Zofran IV 4 mg (NOW) (14:33 06/09/2016 Adrian GONZALEZ) (Ack 14:39 MWinterer R.N.) (15:08 MWinterer R.N.) Protonix IVP 80mg 80 mg (Mix in NS 20ml over 4min) (15:45 06/09/2016 Adrian GONZALEZ) (Ack 16:00 MWinterer R.N.) (16:39 MWinteranjelica Acharya) ORDER SHEET NOTES: [Electronically signed by Kailyn Rivera R.N. (20:57 06/09/2016)] [Electronically signed by Wes Conklin MD (11:46 06/11/2016)] [Electronically locked/signed by Kailyn Rivera R.N. (20:57 06/09/2016)]
--- NOTE | 2016-06-09 20:03 | ED ORDER SUMMARY ---
..... Patient: ROXANNE CAMPBELL OrderSheet [facility] VisitID: [id number] [place] [address] 55y, F Registration Date/Time: 06/09/2016 ORDER SHEET Weight: 61.2 kg (stated) Allergies: Amoxicillin, Phenergan GENERAL ORDERS: Cardiac Panel Stat (12:12 06/09/2016 Adrian GONZALEZ) (Ack 12:18 LTapper) (12:24 MWinterer R.N.) Amylase Urgent (12:12 06/09/2016 Adrian GONZALEZ) (Ack 12:18 LTapper) (12:24 MWinterer R.N.) Lipase Urgent (12:12 06/09/2016 Adrian GONZALEZ) (Ack 12:18 LTapper) (12:24 MWinterer R.N.) CT Abd/Pel w Cont (No) (pending) Urgent (12:13 06/09/2016 Adrian GONZALEZ) (Ack 12:18 LTapper) (13:23 MWinterer R.N.) UA-Culture if indicated Urgent (13:37 06/09/2016 Adrian GONZALEZ) (14:12 MWinterer R.N.) Urine Drug Screen Urgent (13:37 06/09/2016 Adrian GONZALEZ) (14:12 MWinterer R.N.) NG Tube (14:33 06/09/2016 Adrian GONZALEZ) (Ack 14:39 MWinterer R.N.) (15:06 MWinterer R.N.) MEDICATION ORDERS: IV FLUIDS: Dilaudid IV 0.5 mg (NOW) (Sched q5m for X2); Routine (pren) (Sched q5m for X2) (11:28 06/09/2016 Adrian GONZALEZ) (Ack 11:31 MWinterer R.N.) (11:41 MWinterer R.N.) Ativan IV 0.5 mg (NOW) (11:28 06/09/2016 Adrian GONZALEZ) (Ack 11:31 MWinterer R.N.) (11:40 MWinterer R.N.) Zofran IV 4 mg (NOW) (11:29 06/09/2016 Adrian GONZALEZ) (Ack 11:31 MWinterer R.N.) (11:40 MWinterer R.N.) Dilaudid IV 0.5 mg (NOW) (Sched q5m for X2); Routine (pren) (11:33 06/09/2016 Adrian GONZALEZ) (Ack 11:41 MWinterer R.N.) (11:46 MWinterer R.N.) IV NS : initial bolus none -, then 250 mL/hr (NOW) (11:37 06/09/2016 Jt R.N. verbal order read back to Adrian GONZALEZ) (11:40 MWinterer R.N.) Ativan IV 1 mg (NOW) (12:12 06/09/2016 Adrian GONZALEZ) (Ack 12:15 MWinterer R.N.) (12:23 MWinterer R.N.) Dilaudid IV 0.5 mg (NOW) (12:12 06/09/2016 Adrian GONZALEZ) (Ack 12:15 MWinterer R.N.) (12:23 MWinterer R.N.) Zofran IV 4 mg (NOW) (12:16 06/09/2016 Adrian GONZALEZ) (12:24 MWinterer R.N.) Ativan IV 0.5 mg (NOW) (14:32 06/09/2016 Adrian GONZALEZ) (Ack 14:39 MWinterer R.N.) (15:07 MWinterer R.N.) Dilaudid IV 0.5 mg (NOW) (14:32 06/09/2016 Adrian GONZALEZ) (Ack 14:39 MWinterer R.N.) (15:07 MWinterer R.N.) Zofran IV 4 mg (NOW) (14:33 06/09/2016 Adrian GONZALEZ) (Ack 14:39 MWinterer R.N.) (15:08 MWinterer R.N.) Protonix IVP 80mg 80 mg (Mix in NS 20ml over 4min) (15:45 06/09/2016 Adrian GONZALEZ) (Ack 16:00 MWinterer R.N.) (16:39 MWinteranjelica Acharya) ORDER SHEET NOTES: [Electronically signed by Kailyn Rivera R.N. (20:57 06/09/2016)] [Electronically signed by Wes Conklin MD (11:46 06/11/2016)] [Electronically locked/signed by Kailyn Rivera R.N. (20:57 06/09/2016)]
--- NOTE | 2016-06-11 11:46 | ED MED RECONCILIATION SUMMARY ---
Patient: ROXANNE CAMPBELL Medication Reconciliation Report [facility] VisitID: [id number] [address] [place] [address] 55y, F Registration Date/Time: 06/09/2016 Weight: 61.2 kg Height/Length: 69 in. BMI: 19.9 ALLERGIES: Amoxicillin, Phenergan The patient's Home Medications are listed below: THE FOLLOWING MEDICATIONS NEED TO BE RECONCILED: Mountain Thyroid Oral (180 mg) 1 tablet Cymbalta Oral Dicyclomine HCl Oral Reglan Oral The source(s) of the original Home Medication information: patient The following Medications were given to the patient in the Emergency Department: IV NS IV Fluids bolus 0, then 250 mL/hr, administered: 06/09/2016 11:30:00 AM Zofran [IVP] IVP 4 mg, administered: 06/09/2016 11:35:00 AM Ativan [IVP] IVP 0.5 mg, administered: 06/09/2016 11:35:00 AM Dilaudid [IVP] IVP 0.5 mg, administered: 06/09/2016 11:41:00 AM Dilaudid [IVP] IVP 0.5 mg, administered: 06/09/2016 11:46:00 AM Ativan [IVP] IVP 1 mg, administered: 06/09/2016 12:23:00 PM Dilaudid [IVP] IVP 0.5 mg, administered: 06/09/2016 12:23:00 PM Zofran [IVP] IVP 4 mg, administered: 06/09/2016 12:24:00 PM Ativan [IVP] IVP 0.5 mg, administered: 06/09/2016 2:52:00 PM Dilaudid [IVP] IVP 0.5 mg, administered: 06/09/2016 2:52:00 PM Zofran [IVP] IVP 4 mg, administered: 06/09/2016 2:53:00 PM PROTONIX [IVP] IVP 80 mg, administered: 06/09/2016 4:13:00 PM The following Medications were prescribed to the patient: Compazine 25 mg suppositories: every 8 hours as needed for nausea. Dispense ten (10). No refills. Substitution is permissible -- Wes Conklin MD Carafate 1 gm tablets: take 1 orally four times daily (1 hour before meals and at bedtime). Dispense sixty (60). No refills. Substitution is permissible. -- Wes Conklin MD Prilosec 40 mg capsules: take 1 capsule orally every day for 10 days. Dispense ten (10). No refill. Substitution is permissible. -- Wes Conklin MD Alprazolam 0.5 mg: take 1 orally every 6 hours as needed for anxiety. Dispense ten (10). No refill. -- Wes Conklin MD
--- NOTE | 2016-06-11 11:46 | ED MAR SUMMARY ---
..... Medication Administration Record [facility] [address] [place] [address] Patient: ROXANNE CAMPBELL Visit ID: [id number] 55y, F Weight: 61.2 kg Height/Length: 69 in BMI: 19.9 ALLERGIES: Amoxicillin, Phenergan Start 11:06/09/2016 Yeny Eugene R.N., Stop 15:30 06/09/2016 Yeny Eugene R.N. Medication Administered: IV NS (SALINE), Dose: IV Fluids over 4 hour(s), Rate: 250 mL/hr, Dispensed: 900 mL bag, Site: #1 right AC. Medication Ordered: IV NS : initial bolus none -, then 250 mL/hr (NOW). Given 11:06/09/2016 Yeny Eugene R.N. Medication Administered: ATIVAN [IVP] (LORAZEPAM), Dose: 0.5 mg IVP over 1 minute(s), Site: #1 right AC. Medication Ordered: Ativan IV 0.5 mg (NOW). Given 11:35 06/09/2016 Yeny Eugene R.N. Medication Administered: ZOFRAN [IVP] (ONDANSETRON HCL), Dose: 4 mg IVP over 1 minute(s), Site: #1 right AC. Medication Ordered: Zofran IV 4 mg (NOW). Given 11:41 06/09/2016 Yeny Eugene R.N. Medication Administered: DILAUDID [IVP] (HYDROMORPHONE HCL PF), Dose: 0.5 mg IVP over 1 minute(s), Site: #1 right AC. Medication Ordered: Dilaudid IV 0.5 mg (NOW) (Sched q5m for X2); Routine (pren) 1 of 2. Given 11:46 06/09/2016 Yeny Eugene R.N. Medication Administered: DILAUDID [IVP] (HYDROMORPHONE HCL PF), Dose: 0.5 mg IVP over 1 minute(s), Site: #1 right AC. Medication Ordered: Dilaudid IV 0.5 mg (NOW) (Sched q5m for X2); Routine (pren) 2 of 2. Given 12:06/09/2016 Yeny Eugene R.N. Medication Administered: ATIVAN [IVP] (LORAZEPAM), Dose: 1 mg IVP over 2 minute(s), Site: #1 right AC. Medication Ordered: Ativan IV 1 mg (NOW). Given 12:06/09/2016 Yeny Eugene R.N. Medication Administered: DILAUDID [IVP] (HYDROMORPHONE HCL PF), Dose: 0.5 mg IVP over 1 minute(s), Site: #1 right AC. Medication Ordered: Dilaudid IV 0.5 mg (NOW). Given 12:06/09/2016 Yeny Eugene R.N. Medication Administered: ZOFRAN [IVP] (ONDANSETRON HCL), Dose: 4 mg IVP over 1 minute(s), Site: #1 right AC. Medication Ordered: Zofran IV 4 mg (NOW). Given 14:06/09/2016 Yeny Eugene R.N. Medication Administered: ATIVAN [IVP] (LORAZEPAM), Dose: 0.5 mg IVP over 1 minute(s), Site: #1 right AC. Medication Ordered: Ativan IV 0.5 mg (NOW). Given 14:06/09/2016 Yeny Eugene R.N. Medication Administered: DILAUDID [IVP] (HYDROMORPHONE HCL PF), Dose: 0.5 mg IVP over 1 minute(s), Site: #1 right AC. Medication Ordered: Dilaudid IV 0.5 mg (NOW). Given 14:53 06/09/2016 Yeny Eugene R.N. Medication Administered: ZOFRAN [IVP] (ONDANSETRON HCL), Dose: 4 mg IVP over 1 minute(s), Site: #1 right AC. Medication Ordered: Zofran IV 4 mg (NOW). Given 16:13 06/09/2016 Yeny Eugene R.N. Medication Administered: PROTONIX [IVP] (PANTOPRAZOLE SODIUM), Dose: 80 mg IVP over 5 minute(s), Site: #1 right AC. Medication Ordered: Protonix IVP 80mg 80 mg (Mix in NS 20ml over 4min).
--- NOTE | 2016-06-11 11:46 | ED DISCHARGE INSTRUCTIONS ---
Patient: ROXANNE CAMPBELL General Instructions [facility] VisitID: [id number] [place] [address] 55y, F Registration Date/Time: 06/09/2016 Abdominal pain due to gastric distention and antral gastritis with mild outlet obstruction. Congenital malrotation of the bowel. INSTRUCTIONS Take clear liquids only (frequent sips) today, for the next 12 hours until better. (After clear liquid diet advance to full liquid diet until cleared by your surgeon. Use percocet you have at home for pain.). Prescription Medications: Compazine 25 mg suppositories: every 8 hours as needed for nausea. Dispense ten (10). No refills. Substitution is permissible Carafate 1 gm tablets: take 1 orally four times daily (1 hour before meals and at bedtime). Dispense sixty (60). No refills. Substitution is permissible. Prilosec 40 mg capsules: take 1 capsule orally every day for 10 days. Dispense ten (10). No refill. Substitution is permissible. Alprazolam 0.5 mg: take 1 orally every 6 hours as needed for anxiety. Dispense ten (10). No refill. Follow-up: Follow up with a surgeon Saturday in three days as scheduled. Understanding of the discharge instructions verbalized by patient. ADDITIONAL INFORMATION Clear Liquid Diet Clear liquids are any liquid that you can see through as well as those that are very easy to digest. This is used while the body is recovering from irritation or infection of the stomach or intestinal tract. It may also be used before special procedures or surgery. This diet is to be used no more than three days. You may include the following items. Adults Adults should drink a total of 23 quarts of liquid per day. It may be easier to drink small frequent servings rather than a few large ones. Liquids can include: Fruit juices.Strained orange juice or lemonade (no pulp), apple, grape and cranberry juice, clear fruit drinks, sports drinks Beverages.Sport drinks, sodas, mineral water (plain or flavored), tea, black coffee, liquid gelatin (add twice the recommended amount of water) Soups.Clear broth, consomm, bouillon Desserts.Plain gelatin, popsicles, fruit juice bars Children Over 2 years old The following liquids are acceptable for children over age 2: Fruit juices.Strained orange juice or lemonade (no pulp), apple, grape and cranberry juice, clear fruit drinks Beverages. Sports drinks, sodas, mineral water (plain or flavored), tea, liquid gelatin (add twice the recommended amount of water) Soups. Clear broth, consomm, bouillon Desserts. Plain gelatin, popsicles, fruit juice bars Children under 2 years old Oral rehydration fluids such are available at drug stores and most grocery stores without a prescription. Prochlorperazine Rectal suppository What is this medicine? PROCHLORPERAZINE (proe klor PER mansi reyes) helps to control severe nausea and vomiting. How should I use this medicine? This medicine is for rectal use only. Do not take by mouth. Wash your hands before and after use. Take off the foil wrapping. Wet the tip of the suppository with cold tap water to make it easier to use. Lie on your side with your lower leg straightened out and your upper leg bent forward toward your stomach. Lift upper buttock to expose the rectal area. Apply gentle pressure to insert the suppository completely into the rectum, pointed end first. Hold buttocks together for a few seconds. Remain lying down for about 15 minutes to avoid having the suppository come out. Do not use more often than directed. Talk to your poundmaster regarding the use of this medicine in children. Special care may be needed. While this medicine may be prescribed for children as young as 2 years for selected conditions, precautions do apply. What side effects may I notice from receiving this medicine? Side effects that you should report to your doctor or health career services assistant as soon as possible: blurred vision breast enlargement in men or women breast milk in women who are not breast-feeding chest pain, fast or irregular heartbeat confusion, restlessness dark yellow or brown urine difficulty breathing or swallowing dizziness or fainting spells drooling, shaking, movement difficulty (shuffling walk) or rigidity fever, chills, sore throat involuntary or uncontrollable movements of the eyes, mouth, head, arms, and legs seizures stomach area pain unusually weak or tired unusual bleeding or bruising yellowing of skin or eyes Side effects that usually do not require medical attention (report to your doctor or health career services assistant if they continue or are bothersome): difficulty passing urine difficulty sleeping headache sexual dysfunction skin rash, or itching What may interact with this medicine? Do not take this medicine with any of the following medications: amoxapine antidepressants like citalopram, escitalopram, fluoxetine,paroxetine, and sertraline deferoxamine dofetilide maprotiline tricyclic antidepressants like amitriptyline, clomipramine, imipramine, nortiptyline and others This medicine may also interact with the following medications: lithium medicines for pain phenytoin propranolol warfarin What if I miss a dose? If you miss a dose, use it as soon as you can. If it is almost time for your next dose, use only that dose. Do not use double or extra doses. Where should I keep my medicine? Keep out of the reach of children. Store at room temperature between 15 and 30 degrees C (59 and 86 degrees F). Throw away any unused medicine after the expiration date. What should I tell my health care provider before I take this medicine? They need to know if you have any of these conditions: blood disorders or disease dementia liver disease or jaundice Parkinson's disease uncontrollable movement disorder an unusual or allergic reaction to prochlorperazine, other medicines, foods, dyes, or preservatives or trying to get breast-feeding What should I watch for while using this medicine? Visit your doctor or health career services assistant for regular checks on your progress. You may get drowsy or dizzy. Do not drive, use machinery, or do anything that needs mental alertness until you know how this medicine affects you. Do not stand or sit up quickly, especially if you are an older patient. This reduces the risk of dizzy or fainting spells. Alcohol may interfere with the effect of this medicine. Avoid alcoholic drinks. This medicine can reduce the response of your body to heat or cold. Dress tape rules printing machine operator cold weather and stay hydrated in hot weather. If possible, avoid extreme temperatures like saunas, hot tubs, very hot or cold showers, or activities that can cause dehydration such as vigorous exercise. This medicine can make you more sensitive to the sun. Keep out of the sun. If you cannot avoid being in the sun, wear protective clothing and use sunscreen. Do not use sun lamps or tanning beds/booths. Your mouth may get dry. Chewing sugarless gum or sucking hard candy, and drinking plenty of water may help. Contact your doctor if the problem does not go away or is severe. Omeprazole Magnesium Gastro-resistant tablet What is this medicine? OMEPRAZOLE (oh ME pray zol) prevents the production of acid in the stomach. It is used to treat the symptoms of heartburn. You can buy this medicine without a prescription. This product is not for long-term use, unless otherwise directed by your doctor or health career services assistant. How should I use this medicine? Take this medicine by mouth. Follow the directions on the product label. If you are taking this medicine without a prescription, take one tablet every day. Do not use for longer than 14 days or repeat a course of treatment more often than every 4 months unless directed by a doctor or healthcare professional. Take your dose at regular intervals every 24 hours. Swallow the tablet whole with a drink of water. Do not crush, break or chew. This medicine works best if taken on an empty stomach 30 minutes before breakfast. If you are using this medicine with the prescription of your doctor or healthcare professional, follow the directions you were given. Do not take your medicine more often than directed. Talk to your poundmaster regarding the use of this medicine in children. Special care may be needed. What side effects may I notice from receiving this medicine? Side effects that you should report to your doctor or health career services assistant as soon as possible: allergic reactions like skin rash, itching or hives, swelling of the face, lips, or tongue bone, muscle or joint pain breathing problems chest pain or chest tightness dark yellow or brown urine diarrhea dizziness fast, irregular heartbeat feeling faint or lightheaded fever or sore throat muscle spasm palpitations redness, blistering, peeling or loosening of the skin, including inside the mouth seizures tremors unusual bleeding or bruising unusually weak or tired yellowing of the eyes or skin Side effects that usually do not require medical attention (Report these to your doctor or health career services assistant if they continue or are bothersome.): constipation dry mouth headache loose stools nausea What may interact with this medicine? Do not take this medicine with any of the following medications: atazanavir clopidogrel nelfinavir This medicine may also interact with the following medications: ampicillin certain medicines for anxiety or sleep certain medicines that treat or prevent blood clots like warfarin cyclosporine diazepam digoxin disulfiram iron salts phenytoin prescription medicine for fungal or yeast infection like itraconazole, ketoconazole, voriconazole saquinavir tacrolimus What if I miss a dose? If you miss a dose, take it as soon as you can. If it is almost time for your next dose, take only that dose. Do not take double or extra doses. Where should I keep my medicine? Keep out of the reach of children. Store at room temperature between 20 and 25 degrees C (68 and 77 degrees F). Protect from light and moisture. Throw away any unused medicine after the expiration date. What should I tell my health care provider before I take this medicine? They need to know if you have any of these conditions: black or bloody stools chest pain difficulty swallowing have had heartburn for over 3 months have heartburn with dizziness, lightheadedness or sweating liver disease stomach pain unexplained weight loss vomiting with blood wheezing an unusual or allergic reaction to omeprazole, other medicines, foods, dyes, or preservatives or trying to get breast-feeding What should I watch for while using this medicine? It can take several days before your heartburn gets better. Check with your doctor or health career services assistant if your condition does not start to get better, or if it gets worse. Do not treat diarrhea with over the counter products. Contact your doctor if you have diarrhea that lasts more than 2 days or if it is severe and watery. Do not treat yourself for heartburn with this medicine for more than 14 days in a row. You should only use this medicine for a 2-week treatment period once every 4 months. If your symptoms return shortly after your therapy is complete, or within the 4 month time frame, call your doctor or health career services assistant. Alprazolam Oral tablet What is this medicine? ALPRAZOLAM (al PRAY jalil matson) is a benzodiazepine. It is used to treat anxiety and panic attacks. How should I use this medicine? Take this medicine by mouth with a glass of water. Follow the directions on the prescription label. Take your medicine at regular intervals. Do not take it more often than directed. If you have been taking this medicine regularly for some time, do not suddenly stop taking it. You must gradually reduce the dose or you may get severe side effects. Ask your doctor or health career services assistant for advice. Even after you stop taking this medicine it can still affect your body for several days. Talk to your poundmaster regarding the use of this medicine in children. Special care may be needed. What side effects may I notice from receiving this medicine? Side effects that you should report to your doctor or health career services assistant as soon as possible: allergic reactions like skin rash, itching or hives, swelling of the face, lips, or tongue confusion, forgetfulness depression difficulty sleeping difficulty speaking feeling faint or lightheaded, falls mood changes, excitability or aggressive behavior muscle cramps trouble passing urine or change in the amount of urine unusually weak or tired Side effects that usually do not require medical attention (report to your doctor or health career services assistant if they continue or are bothersome): change in sex drive or performance changes in appetite What may interact with this medicine? Do not take this medicine with any of the following medications: certain medicines for HIV infection or AIDS ketoconazole itraconazole This medicine may also interact with the following medications: control pills certain macrolide antibiotics like clarithromycin, erythromycin, troleandomycin cimetidine cyclosporine ergotamine grapefruit juice herbal or dietary supplements like kava kava, melatonin, dehydroepiandrosterone, DHEA, Maia's Wort or valerian imatinib, [id number] isoniazid levodopa medicines for depression, anxiety, or psychotic disturbances prescription pain medicines rifampin, rifapentine, or rifabutin some medicines for blood pressure or heart problems some medicines for seizures like carbamazepine, oxcarbazepine, phenobarbital, phenytoin, primidone What if I miss a dose? If you miss a dose, take it as soon as you can. If it is almost time for your next dose, take only that dose. Do not take double or extra doses. Where should I keep my medicine? Keep out of the reach of children. This medicine can be abused. Keep your medicine in a safe place to protect it from theft. Do not share this medicine with anyone. Selling or giving away this medicine is dangerous and against the law. Store at room temperature between 20 and 25 degrees C (68 and 77 degrees F). Throw away any unused medicine after the expiration date. What should I tell my health care provider before I take this medicine? They need to know if you have any of these conditions: an alcohol or drug abuse problem bipolar disorder, depression, psychosis or other mental health conditions glaucoma kidney or liver disease lung or breathing disease myasthenia gravis Parkinson's disease porphyria seizures or a history of seizures suicidal thoughts an unusual or allergic reaction to alprazolam, other benzodiazepines, foods, dyes, or preservatives or trying to get breast-feeding What should I watch for while using this medicine? Visit your doctor or health career services assistant for regular checks on your progress. Your body can become dependent on this medicine. Ask your doctor or health career services assistant if you still need to take it. You may get drowsy or dizzy. Do not drive, use machinery, or do anything that needs mental alertness until you know how this medicine affects you. To reduce the risk of dizzy and fainting spells, do not stand or sit up quickly, especially if you are an older patient. Alcohol may increase dizziness and drowsiness. Avoid alcoholic drinks. Do not treat yourself for coughs, colds or allergies without asking your doctor or health career services assistant for advice. Some ingredients can increase possible side effects. You have been given the following additional information: Diet, Clear Liquid Prochlorperazine Rectal suppository Omeprazole Magnesium Gastro-resistant tablet Alprazolam Oral tablet (Electronically signed by Wes Conklin MD 06/11/2016 11:46)
--- NOTE | 2016-06-11 11:46 | ED DISCHARGE INSTRUCTIONS ---
Patient: ROXANNE CAMPBELL General Instructions [facility] VisitID: [id number] [place] [address] 55y, F Registration Date/Time: 06/09/2016 Abdominal pain due to gastric distention and antral gastritis with mild outlet obstruction. Congenital malrotation of the bowel. INSTRUCTIONS Take clear liquids only (frequent sips) today, for the next 12 hours until better. (After clear liquid diet advance to full liquid diet until cleared by your surgeon. Use percocet you have at home for pain.). Prescription Medications: Compazine 25 mg suppositories: every 8 hours as needed for nausea. Dispense ten (10). No refills. Substitution is permissible Carafate 1 gm tablets: take 1 orally four times daily (1 hour before meals and at bedtime). Dispense sixty (60). No refills. Substitution is permissible. Prilosec 40 mg capsules: take 1 capsule orally every day for 10 days. Dispense ten (10). No refill. Substitution is permissible. Alprazolam 0.5 mg: take 1 orally every 6 hours as needed for anxiety. Dispense ten (10). No refill. Follow-up: Follow up with a surgeon Saturday in three days as scheduled. Understanding of the discharge instructions verbalized by patient. ADDITIONAL INFORMATION Clear Liquid Diet Clear liquids are any liquid that you can see through as well as those that are very easy to digest. This is used while the body is recovering from irritation or infection of the stomach or intestinal tract. It may also be used before special procedures or surgery. This diet is to be used no more than three days. You may include the following items. Adults Adults should drink a total of 23 quarts of liquid per day. It may be easier to drink small frequent servings rather than a few large ones. Liquids can include: Fruit juices.Strained orange juice or lemonade (no pulp), apple, grape and cranberry juice, clear fruit drinks, sports drinks Beverages.Sport drinks, sodas, mineral water (plain or flavored), tea, black coffee, liquid gelatin (add twice the recommended amount of water) Soups.Clear broth, consomm, bouillon Desserts.Plain gelatin, popsicles, fruit juice bars Children Over 2 years old The following liquids are acceptable for children over age 2: Fruit juices.Strained orange juice or lemonade (no pulp), apple, grape and cranberry juice, clear fruit drinks Beverages. Sports drinks, sodas, mineral water (plain or flavored), tea, liquid gelatin (add twice the recommended amount of water) Soups. Clear broth, consomm, bouillon Desserts. Plain gelatin, popsicles, fruit juice bars Children under 2 years old Oral rehydration fluids such are available at drug stores and most grocery stores without a prescription. Prochlorperazine Rectal suppository What is this medicine? PROCHLORPERAZINE (proe klor PER mansi reyes) helps to control severe nausea and vomiting. How should I use this medicine? This medicine is for rectal use only. Do not take by mouth. Wash your hands before and after use. Take off the foil wrapping. Wet the tip of the suppository with cold tap water to make it easier to use. Lie on your side with your lower leg straightened out and your upper leg bent forward toward your stomach. Lift upper buttock to expose the rectal area. Apply gentle pressure to insert the suppository completely into the rectum, pointed end first. Hold buttocks together for a few seconds. Remain lying down for about 15 minutes to avoid having the suppository come out. Do not use more often than directed. Talk to your extractions technologist regarding the use of this medicine in children. Special care may be needed. While this medicine may be prescribed for children as young as 2 years for selected conditions, precautions do apply. What side effects may I notice from receiving this medicine? Side effects that you should report to your doctor or health care technician as soon as possible: blurred vision breast enlargement in men or women breast milk in women who are not breast-feeding chest pain, fast or irregular heartbeat confusion, restlessness dark yellow or brown urine difficulty breathing or swallowing dizziness or fainting spells drooling, shaking, movement difficulty (shuffling walk) or rigidity fever, chills, sore throat involuntary or uncontrollable movements of the eyes, mouth, head, arms, and legs seizures stomach area pain unusually weak or tired unusual bleeding or bruising yellowing of skin or eyes Side effects that usually do not require medical attention (report to your doctor or health care technician if they continue or are bothersome): difficulty passing urine difficulty sleeping headache sexual dysfunction skin rash, or itching What may interact with this medicine? Do not take this medicine with any of the following medications: amoxapine antidepressants like citalopram, escitalopram, fluoxetine,paroxetine, and sertraline deferoxamine dofetilide maprotiline tricyclic antidepressants like amitriptyline, clomipramine, imipramine, nortiptyline and others This medicine may also interact with the following medications: lithium medicines for pain phenytoin propranolol warfarin What if I miss a dose? If you miss a dose, use it as soon as you can. If it is almost time for your next dose, use only that dose. Do not use double or extra doses. Where should I keep my medicine? Keep out of the reach of children. Store at room temperature between 15 and 30 degrees C (59 and 86 degrees F). Throw away any unused medicine after the expiration date. What should I tell my health care provider before I take this medicine? They need to know if you have any of these conditions: blood disorders or disease dementia liver disease or jaundice Parkinson's disease uncontrollable movement disorder an unusual or allergic reaction to prochlorperazine, other medicines, foods, dyes, or preservatives or trying to get breast-feeding What should I watch for while using this medicine? Visit your doctor or health care technician for regular checks on your progress. You may get drowsy or dizzy. Do not drive, use machinery, or do anything that needs mental alertness until you know how this medicine affects you. Do not stand or sit up quickly, especially if you are an older patient. This reduces the risk of dizzy or fainting spells. Alcohol may interfere with the effect of this medicine. Avoid alcoholic drinks. This medicine can reduce the response of your body to heat or cold. Dress financial services education consultant cold weather and stay hydrated in hot weather. If possible, avoid extreme temperatures like saunas, hot tubs, very hot or cold showers, or activities that can cause dehydration such as vigorous exercise. This medicine can make you more sensitive to the sun. Keep out of the sun. If you cannot avoid being in the sun, wear protective clothing and use sunscreen. Do not use sun lamps or tanning beds/booths. Your mouth may get dry. Chewing sugarless gum or sucking hard candy, and drinking plenty of water may help. Contact your doctor if the problem does not go away or is severe. Omeprazole Magnesium Gastro-resistant tablet What is this medicine? OMEPRAZOLE (oh ME pray zol) prevents the production of acid in the stomach. It is used to treat the symptoms of heartburn. You can buy this medicine without a prescription. This product is not for long-term use, unless otherwise directed by your doctor or health care technician. How should I use this medicine? Take this medicine by mouth. Follow the directions on the product label. If you are taking this medicine without a prescription, take one tablet every day. Do not use for longer than 14 days or repeat a course of treatment more often than every 4 months unless directed by a doctor or healthcare professional. Take your dose at regular intervals every 24 hours. Swallow the tablet whole with a drink of water. Do not crush, break or chew. This medicine works best if taken on an empty stomach 30 minutes before breakfast. If you are using this medicine with the prescription of your doctor or healthcare professional, follow the directions you were given. Do not take your medicine more often than directed. Talk to your extractions technologist regarding the use of this medicine in children. Special care may be needed. What side effects may I notice from receiving this medicine? Side effects that you should report to your doctor or health care technician as soon as possible: allergic reactions like skin rash, itching or hives, swelling of the face, lips, or tongue bone, muscle or joint pain breathing problems chest pain or chest tightness dark yellow or brown urine diarrhea dizziness fast, irregular heartbeat feeling faint or lightheaded fever or sore throat muscle spasm palpitations redness, blistering, peeling or loosening of the skin, including inside the mouth seizures tremors unusual bleeding or bruising unusually weak or tired yellowing of the eyes or skin Side effects that usually do not require medical attention (Report these to your doctor or health care technician if they continue or are bothersome.): constipation dry mouth headache loose stools nausea What may interact with this medicine? Do not take this medicine with any of the following medications: atazanavir clopidogrel nelfinavir This medicine may also interact with the following medications: ampicillin certain medicines for anxiety or sleep certain medicines that treat or prevent blood clots like warfarin cyclosporine diazepam digoxin disulfiram iron salts phenytoin prescription medicine for fungal or yeast infection like itraconazole, ketoconazole, voriconazole saquinavir tacrolimus What if I miss a dose? If you miss a dose, take it as soon as you can. If it is almost time for your next dose, take only that dose. Do not take double or extra doses. Where should I keep my medicine? Keep out of the reach of children. Store at room temperature between 20 and 25 degrees C (68 and 77 degrees F). Protect from light and moisture. Throw away any unused medicine after the expiration date. What should I tell my health care provider before I take this medicine? They need to know if you have any of these conditions: black or bloody stools chest pain difficulty swallowing have had heartburn for over 3 months have heartburn with dizziness, lightheadedness or sweating liver disease stomach pain unexplained weight loss vomiting with blood wheezing an unusual or allergic reaction to omeprazole, other medicines, foods, dyes, or preservatives or trying to get breast-feeding What should I watch for while using this medicine? It can take several days before your heartburn gets better. Check with your doctor or health care technician if your condition does not start to get better, or if it gets worse. Do not treat diarrhea with over the counter products. Contact your doctor if you have diarrhea that lasts more than 2 days or if it is severe and watery. Do not treat yourself for heartburn with this medicine for more than 14 days in a row. You should only use this medicine for a 2-week treatment period once every 4 months. If your symptoms return shortly after your therapy is complete, or within the 4 month time frame, call your doctor or health care technician. Alprazolam Oral tablet What is this medicine? ALPRAZOLAM (al PRAY jalil matson) is a benzodiazepine. It is used to treat anxiety and panic attacks. How should I use this medicine? Take this medicine by mouth with a glass of water. Follow the directions on the prescription label. Take your medicine at regular intervals. Do not take it more often than directed. If you have been taking this medicine regularly for some time, do not suddenly stop taking it. You must gradually reduce the dose or you may get severe side effects. Ask your doctor or health care technician for advice. Even after you stop taking this medicine it can still affect your body for several days. Talk to your extractions technologist regarding the use of this medicine in children. Special care may be needed. What side effects may I notice from receiving this medicine? Side effects that you should report to your doctor or health care technician as soon as possible: allergic reactions like skin rash, itching or hives, swelling of the face, lips, or tongue confusion, forgetfulness depression difficulty sleeping difficulty speaking feeling faint or lightheaded, falls mood changes, excitability or aggressive behavior muscle cramps trouble passing urine or change in the amount of urine unusually weak or tired Side effects that usually do not require medical attention (report to your doctor or health care technician if they continue or are bothersome): change in sex drive or performance changes in appetite What may interact with this medicine? Do not take this medicine with any of the following medications: certain medicines for HIV infection or AIDS ketoconazole itraconazole This medicine may also interact with the following medications: control pills certain macrolide antibiotics like clarithromycin, erythromycin, troleandomycin cimetidine cyclosporine ergotamine grapefruit juice herbal or dietary supplements like kava kava, melatonin, dehydroepiandrosterone, DHEA, Maia's Wort or valerian imatinib, [id number] isoniazid levodopa medicines for depression, anxiety, or psychotic disturbances prescription pain medicines rifampin, rifapentine, or rifabutin some medicines for blood pressure or heart problems some medicines for seizures like carbamazepine, oxcarbazepine, phenobarbital, phenytoin, primidone What if I miss a dose? If you miss a dose, take it as soon as you can. If it is almost time for your next dose, take only that dose. Do not take double or extra doses. Where should I keep my medicine? Keep out of the reach of children. This medicine can be abused. Keep your medicine in a safe place to protect it from theft. Do not share this medicine with anyone. Selling or giving away this medicine is dangerous and against the law. Store at room temperature between 20 and 25 degrees C (68 and 77 degrees F). Throw away any unused medicine after the expiration date. What should I tell my health care provider before I take this medicine? They need to know if you have any of these conditions: an alcohol or drug abuse problem bipolar disorder, depression, psychosis or other mental health conditions glaucoma kidney or liver disease lung or breathing disease myasthenia gravis Parkinson's disease porphyria seizures or a history of seizures suicidal thoughts an unusual or allergic reaction to alprazolam, other benzodiazepines, foods, dyes, or preservatives or trying to get breast-feeding What should I watch for while using this medicine? Visit your doctor or health care technician for regular checks on your progress. Your body can become dependent on this medicine. Ask your doctor or health care technician if you still need to take it. You may get drowsy or dizzy. Do not drive, use machinery, or do anything that needs mental alertness until you know how this medicine affects you. To reduce the risk of dizzy and fainting spells, do not stand or sit up quickly, especially if you are an older patient. Alcohol may increase dizziness and drowsiness. Avoid alcoholic drinks. Do not treat yourself for coughs, colds or allergies without asking your doctor or health care technician for advice. Some ingredients can increase possible side effects. You have been given the following additional information: Diet, Clear Liquid Prochlorperazine Rectal suppository Omeprazole Magnesium Gastro-resistant tablet Alprazolam Oral tablet (Electronically signed by Wes Conklin MD 06/11/2016 11:46)
--- NOTE | 2016-06-11 11:46 | ED MAR SUMMARY ---
..... Medication Administration Record [facility] [address] [place] [address] Patient: ROXANNE CAMPBELL Visit ID: [id number] 55y, F Weight: 61.2 kg Height/Length: 69 in BMI: 19.9 ALLERGIES: Amoxicillin, Phenergan Start 11:06/09/2016 Yeny Eugene R.N., Stop 15:30 06/09/2016 Yeny Eugene R.N. Medication Administered: IV NS (SALINE), Dose: IV Fluids over 4 hour(s), Rate: 250 mL/hr, Dispensed: 900 mL bag, Site: #1 right AC. Medication Ordered: IV NS : initial bolus none -, then 250 mL/hr (NOW). Given 11:06/09/2016 Yeny Eugene R.N. Medication Administered: ATIVAN [IVP] (LORAZEPAM), Dose: 0.5 mg IVP over 1 minute(s), Site: #1 right AC. Medication Ordered: Ativan IV 0.5 mg (NOW). Given 11:35 06/09/2016 Yeny Eugene R.N. Medication Administered: ZOFRAN [IVP] (ONDANSETRON HCL), Dose: 4 mg IVP over 1 minute(s), Site: #1 right AC. Medication Ordered: Zofran IV 4 mg (NOW). Given 11:41 06/09/2016 Yeny Eugene R.N. Medication Administered: DILAUDID [IVP] (HYDROMORPHONE HCL PF), Dose: 0.5 mg IVP over 1 minute(s), Site: #1 right AC. Medication Ordered: Dilaudid IV 0.5 mg (NOW) (Sched q5m for X2); Routine (pren) 1 of 2. Given 11:46 06/09/2016 Yeny Eugene R.N. Medication Administered: DILAUDID [IVP] (HYDROMORPHONE HCL PF), Dose: 0.5 mg IVP over 1 minute(s), Site: #1 right AC. Medication Ordered: Dilaudid IV 0.5 mg (NOW) (Sched q5m for X2); Routine (pren) 2 of 2. Given 12:06/09/2016 Yeny Eugene R.N. Medication Administered: ATIVAN [IVP] (LORAZEPAM), Dose: 1 mg IVP over 2 minute(s), Site: #1 right AC. Medication Ordered: Ativan IV 1 mg (NOW). Given 12:06/09/2016 Yeny Eugene R.N. Medication Administered: DILAUDID [IVP] (HYDROMORPHONE HCL PF), Dose: 0.5 mg IVP over 1 minute(s), Site: #1 right AC. Medication Ordered: Dilaudid IV 0.5 mg (NOW). Given 12:06/09/2016 Yeny Eugene R.N. Medication Administered: ZOFRAN [IVP] (ONDANSETRON HCL), Dose: 4 mg IVP over 1 minute(s), Site: #1 right AC. Medication Ordered: Zofran IV 4 mg (NOW). Given 14:06/09/2016 Yeny Eugene R.N. Medication Administered: ATIVAN [IVP] (LORAZEPAM), Dose: 0.5 mg IVP over 1 minute(s), Site: #1 right AC. Medication Ordered: Ativan IV 0.5 mg (NOW). Given 14:06/09/2016 Yeny Eugene R.N. Medication Administered: DILAUDID [IVP] (HYDROMORPHONE HCL PF), Dose: 0.5 mg IVP over 1 minute(s), Site: #1 right AC. Medication Ordered: Dilaudid IV 0.5 mg (NOW). Given 14:53 06/09/2016 Yeny Eugene R.N. Medication Administered: ZOFRAN [IVP] (ONDANSETRON HCL), Dose: 4 mg IVP over 1 minute(s), Site: #1 right AC. Medication Ordered: Zofran IV 4 mg (NOW). Given 16:13 06/09/2016 Yeny Eugene R.N. Medication Administered: PROTONIX [IVP] (PANTOPRAZOLE SODIUM), Dose: 80 mg IVP over 5 minute(s), Site: #1 right AC. Medication Ordered: Protonix IVP 80mg 80 mg (Mix in NS 20ml over 4min).
--- NOTE | 2016-06-11 11:46 | ED MED RECONCILIATION SUMMARY ---
Patient: ROXANNE CAMPBELL Medication Reconciliation Report [facility] VisitID: [id number] [place] [address] 55y, F Registration Date/Time: 06/09/2016 Weight: 61.2 kg Height/Length: 69 in. BMI: 19.9 ALLERGIES: Amoxicillin, Phenergan The patient's Home Medications are listed below: THE FOLLOWING MEDICATIONS NEED TO BE RECONCILED: [place] Thyroid Oral (180 mg) 1 tablet Cymbalta Oral Dicyclomine HCl Oral Reglan Oral The source(s) of the original Home Medication information: patient The following Medications were given to the patient in the Emergency Department: IV NS IV Fluids bolus 0, then 250 mL/hr, administered: 06/09/2016 11:30:00 AM Zofran [IVP] IVP 4 mg, administered: 06/09/2016 11:35:00 AM Ativan [IVP] IVP 0.5 mg, administered: 06/09/2016 11:35:00 AM Dilaudid [IVP] IVP 0.5 mg, administered: 06/09/2016 11:41:00 AM Dilaudid [IVP] IVP 0.5 mg, administered: 06/09/2016 11:46:00 AM Ativan [IVP] IVP 1 mg, administered: 06/09/2016 12:23:00 PM Dilaudid [IVP] IVP 0.5 mg, administered: 06/09/2016 12:23:00 PM Zofran [IVP] IVP 4 mg, administered: 06/09/2016 12:24:00 PM Ativan [IVP] IVP 0.5 mg, administered: 06/09/2016 2:52:00 PM Dilaudid [IVP] IVP 0.5 mg, administered: 06/09/2016 2:52:00 PM Zofran [IVP] IVP 4 mg, administered: 06/09/2016 2:53:00 PM PROTONIX [IVP] IVP 80 mg, administered: 06/09/2016 4:13:00 PM The following Medications were prescribed to the patient: Compazine 25 mg suppositories: every 8 hours as needed for nausea. Dispense ten (10). No refills. Substitution is permissible -- Wes Conklin MD Carafate 1 gm tablets: take 1 orally four times daily (1 hour before meals and at bedtime). Dispense sixty (60). No refills. Substitution is permissible. -- Wes Conklin MD Prilosec 40 mg capsules: take 1 capsule orally every day for 10 days. Dispense ten (10). No refill. Substitution is permissible. -- Wes Conklin MD Alprazolam 0.5 mg: take 1 orally every 6 hours as needed for anxiety. Dispense ten (10). No refill. -- Wes Conklin MD
== END 2016-06-09 20:50 | disposition home or self-care (01) ==
LOC: ED SRH 10:34
DX: K31.89 Other diseases of stomach and duodenum (principal); K29.60 Other gastritis without bleeding; K31.1 Adult hypertrophic pyloric stenosis; R10.33 Periumbilical pain; Q43.3 Congenital malformations of intestinal fixation; Z79.899 Other long term (current) drug therapy; Z88.8 Allergy status to other drugs, medicaments and biological substances; Z88.0 Allergy status to penicillin
CPT/HCPCS: 90004; 90100; 90616; 92235; 92530; 92610; 92720; 92760; 92761; 92762; 92763; 92764; 92765; 92766; 92767; 95059

== ENCOUNTER 2016-08-18 13:30 | Emergency (ER) | payer OTHER ==
--- NOTE | 2016-08-18 16:48 | ED NURSING NOTES ---
Clinical Report - Nurses Located Within [facility] [address] [place] [address] 08/18/2016 13:30 Patient: ROXANNE CAMPBELL TRIAGE Triage time 13:36 Aug 18 2016. Chief Complaint: ABDOMINAL PAIN and (pt reports 2 days of "flu like symptoms" pt woke today feeling better and "I thought it was gas" mid sternal pain down to mid abd with nausea). Alert. No acute distress. SEPSIS SCREEN: Sepsis Screen. Negative (no infection suspected/documented). --13:46 Pierre Hernandez R.N. 13:36 08/18/16. BP: 168/99. HR: 118. RR: 17. O2 saturation: 100%. Temp: 97.9 F. Pain level now: 11/08. --13:46 Pierre Hernandez R.N. Weight: 59.4 kg stated. Height/Length: 69 inches Per Patient. BMI: 19.4. --13:43 Pierre Hernandez R.N. Medications Dicyclomine HCl Oral 20 mg, daily. --13:41 Pierre Hernandez R.N. Cymbalta Oral 90, mg. --13:41 Pierre Hernandez R.N. Gabapentin Oral 300 mg, at bedtime. --13:41 Pierre Hernandez R.N. Medication/allergy information source: the patient. --13:46 Pierre Hernandez R.N. Allergies Phenergan. --13:42 Pierre Hernandez R.N. History Arrived by private vehicle. Historian: patient. Onset. (saturday night). She has had nausea. Treatment [employer] WORK[employer]: (nausea meds and dicyclamine). PAST MEDICAL HX: Immunizations: up-to-date. The patient has had a hysterectomy. SOCIAL HX: Heavy tobacco smoker- less than 1 pack per day. Occasional alcohol use; consumes wine occasionally. No recent travel. No infectious disease exposure. No known contact with a sick individual. ABUSE ASSESSMENT: No report of abuse. SELF HARM ASSESSMENT: A self harm assessment was performed. The patient answered "no" to the question "Have you recently felt down, depressed, or hopeless?", "Have you noticed less interest or pleasure in doing things?", "Do you have thoughts of harming or killing yourself?", "Are you here because you tried to hurt yourself?", "Have you ever tried to hurt yourself before today?", "Have you recently had thoughts about harming or killing others?" and "Do you have any dangerous items in your possession?". FALL RISK ASSESSMENT: Fall risk assessment completed. No fall risk identified. NUTRITIONAL RISK ASSESSMENT: The nutritional risk assessment revealed no deficiencies. FUNCTIONAL ASSESSMENT: Functional assessment: no impairments noted. LEARNING NEEDS ASSESSMENT: The learning needs assessment revealed no barriers. SKIN INTEGRITY ASSESSMENT: Skin integrity risk assessment completed. No skin integrity risk identified. --13:46 Pierre Hernandez R.N. PROBLEMS: Hiatal Hernia. UTI - Urinary Tract Infection. Fibromyalgia. Abdominal Pain. Gastritis. Hypokalemia. Gastroesophageal Reflux Disease. Twisted Bowel. Sinusitis. Lifestyle / Substance Problems. Headache. Migraine Headache. --13:42 Pierre Hernandez R.N. ADDITIONAL SURGERIES: Bladder Suspension. Hiatal hernia. Hysterectomy. Previous Abdominal Surgery. --13:42 Pierre Hernandez R.N. Interventions ID and allergy band on patient. --13:46 Pierre Hernandez R.N. PHYSICAL ASSESSMENT Ambulatory to room. Patient gowned. GENERAL / NEURO / PSYCH: Alert. Oriented X 4. Appears anxious. HEENT: Mucous membranes are pink. RESPIRATORY: Respirations not labored. Breath sounds within normal limits. CVS: Capillary refill less than 2 seconds. GI / : Abdomen soft and nontender. Bowel sounds within normal limits. SKIN: Skin is warm and dry. --13:46 Pierre Hernandez R.N. NURSING PROGRESS NOTES Monitoring of patient in place. Head of bed elevated. Reassurance given. Patient ID band checked for patient name and birthdate: patient confirmed. Instructions provided to collect clean catch urine and patient verbalized understanding. Clean catch urine collected with return of yellow-colored urine; sample sent to lab for urinalysis. Specimen labeled in the presence of the patient. Patient identifiers checked. Call light placed in reach. Side rails up x 1. Bed placed in lowest position. Brakes of bed on. Patient ready for evaluation- chart flagged. Patient waiting for evaluation. --13:47 Pierre Hernandez R.N. Checked patient name and birthdate. Blood samples drawn by nurse per protocol ; labeled in presence of the patient and sent to lab: rainbow set. (bloods drawn from iv site- site d/c after labs, site blew). --13:48 Pierre Hernandez R.N. 14:43 08/18/2016 Site #1 started via IV in the right antecubital space with an 20g angiocath, with aseptic technique and good blood return; one attempt. Blood drawn: rainbow set. Labeled in the presence of the patient and sent to the lab. Saline lock flushed with 10 mL saline. --14:43 Sharan Garcia R.N. 14:43 08/18/2016 Started bag #1 1000 mL IV Fluids IV NS (Saline); at 1000 mL/hr over 1 hour(s) via site #1. Allergies verified and confirmed 5 rights. IV patency established. IV site checked: no pain, redness, or swelling. IV flushed thoroughly pre- and post-medication administration. Completed per protocol. --14:43 Sharan Garcia R.N. 14:43 08/18/2016 Reglan (Metoclopramide HCl) IVP 10 mg given over 2 hour(s) via site #1. Allergies verified and confirmed 5 rights. IV patency established. IV site checked: no pain, redness, or swelling. IV flushed thoroughly pre- and post-medication administration. IVP given by RN. --14:43 Sharan Garcia R.N. 14:43 08/18/2016 Toradol IVP 30 mg given over 2 minute(s) via site #1. Allergies verified and confirmed 5 rights. IV patency established. IV site checked: no pain, redness, or swelling. IV flushed thoroughly pre- and post-medication administration. IVP given by RN. --14:43 Sharan Garcia R.N. ( warm blankets provided for comfort, pt cont to c/o pain to upper abd "that pain medicine didn't really do anything" lights down for comfort, waiting further poc from MD). --15:11 Pierre Hernandez R.N. Reassurance given. Reassessment after medication administered (no change in pain per pt). She has had no adverse reaction. Patient identifiers checked. Call light placed in reach. Side rails up x 1. Bed placed in lowest position. Brakes of bed on. --15:12 Pierre Hernandez R.N. 15:11 08/18/16. BP: 178/98. HR: 102. RR: 17. Pain level now 10/08. --15:12 Pierre Hernandez R.N. ( labs reviewed). --15:13 Pierre Hernandez R.N. 15:49 08/18/16. Patient transported to radiology by stretcher with tech. --16:06 Pierre Hernandez R.N. Patient waiting for radiology results. --16:06 Pierre Hernandez R.N. ( pt cont to call out for pain meds, is aware and has been given toradol for pain .). --16:28 Pierre Hernandez R.N. DISPOSITION / DISCHARGE 17:00 08/18/2016 Site #1 removed upon discharge. Bandaid applied. --17:11 Pierre Hernandez R.N. ( pt dc home ambulatory with steady gait, no emesis since presentation, given rx and f/u). No learning barriers present. Discharge instructions provided and reviewed with the patient. Reviewed medication(s) side effects and course information. Prescription(s) given to the patient. Patient verbalized understanding. Written instructions provided in [place]. The patient was discharged by the physician. She was discharged home and accompanied by translational specialist. She left the Emergency Department ambulatory and via private vehicle. Facilities Custodian driving. --17:12 Pierer Hernandez R.N. 17:09 08/18/16. BP: 168/96. HR: 96. RR: 17. O2 saturation: 98%. Temp: 98 F. Pain level now: 08/08. --17:12 Pierre Hernandez R.N. Locked/Released at 08/18/2016 17:13 by Pierre Hernandez R.N.
--- NOTE | 2016-08-18 16:48 | ED ORDER SUMMARY ---
..... Patient: ROXANNE CAMPBELL OrderSheet [facility] VisitID: [id number] [place] [address] 56y, F Registration Date/Time: 08/18/2016 ORDER SHEET Weight: 59.4 kg (stated) Allergies: Phenergan GENERAL ORDERS: CBC w Diff Urgent (14:08/18/2016 Lisha Delcid) (Ack 14:36 Malcolm) (14:44 JDeElena R.N.) CMP Urgent (14:08/18/2016 Lisha Delcid) (Ack 14:36 Malcolm) (14:44 JDeElena R.N.) Amylase Urgent (14:08/18/2016 Lisha Delcid) (Ack 14:36 Malcolm) (14:44 JDeElena R.N.) Lipase Urgent (14:08/18/2016 Lisha Delcid) (Ack 14:36 Malcolm) (14:44 JDeElena R.N.) UA-Culture if indicated Urgent (14:08/18/2016 Lisha Delcid) (Ack 14:36 Malcolm) (14:44 JDeElena R.N.) Urine Drug Screen Urgent (14:08/18/2016 Lisha Delcid) (Ack 14:36 Malcolm) (14:44 JDeElena R.N.) Abdomen 1V Urgent (15:29 08/18/2016 Lisha Delcid) (Ack 15:37 Malcolm) (16:52 MWinterer R.N.) MEDICATION ORDERS: IV FLUIDS: IV NS : initial bolus none -, then 1000 mL/hr for X1 (NOW) (14:08/18/2016 Lisha Delcid) (Ack 14:38 JDeElena R.N.) (14:43 JDeElena R.N.) Reglan IV 10 mg (NOW) (14:08/18/2016 Lisha Delcid) (Ack 14:38 OmerDeDebia R.N.) (14:43 JDeElena R.N.) Toradol IV 30 mg (NOW) (14:28 08/18/2016 Lisha Delcid) ([facility] 14:38 Katie Epperson.Jordan) (14:43 Katie Acharya) ORDER SHEET NOTES: [Electronically signed by Pierre Hernandez R.N. (17:13 08/18/2016)] [Electronically signed by Mahendra Brink Dr. (08:50 08/19/2016)] [Electronically locked/signed by Pierre Hernandez R.N. (17:13 08/18/2016)]
--- NOTE | 2016-08-18 16:48 | ED ORDER SUMMARY ---
..... Patient: ROXANNE CAMPBELL OrderSheet [facility] VisitID: [id number] [place] [address] 56y, F Registration Date/Time: 08/18/2016 ORDER SHEET Weight: 59.4 kg (stated) Allergies: Phenergan GENERAL ORDERS: CBC w Diff Urgent (14:08/18/2016 Lisha Delcid) (Ack 14:36 Malcolm) (14:44 JDeElena R.N.) CMP Urgent (14:08/18/2016 Lisha Delcid) (Ack 14:36 Malcolm) (14:44 JDeElena R.N.) Amylase Urgent (14:08/18/2016 Lisha Delcid) (Ack 14:36 Malcolm) (14:44 JDeElena R.N.) Lipase Urgent (14:08/18/2016 Lisha Delcid) (Ack 14:36 Malcolm) (14:44 JDeElena R.N.) UA-Culture if indicated Urgent (14:08/18/2016 Lisha Delcid) (Ack 14:36 Malcolm) (14:44 JDeElena R.N.) Urine Drug Screen Urgent (14:08/18/2016 Lisha Delcid) (Ack 14:36 Malcolm) (14:44 JDeElena R.N.) Abdomen 1V Urgent (15:29 08/18/2016 Lisha Delcid) (Ack 15:37 Malcolm) (16:52 MWinterer R.N.) MEDICATION ORDERS: IV FLUIDS: IV NS : initial bolus none -, then 1000 mL/hr for X1 (NOW) (14:08/18/2016 Lisha Delcid) (Ack 14:38 JDeElena R.N.) (14:43 JDeElena R.N.) Reglan IV 10 mg (NOW) (14:08/18/2016 Lisha Delicd) (Ack 14:38 OmerDeDebia R.N.) (14:43 JDeElena R.N.) Toradol IV 30 mg (NOW) (14:28 08/18/2016 Lisha Delcid) ([facility] 14:38 Katie Epperson.Jordan) (14:43 Katie Acharya) ORDER SHEET NOTES: [Electronically signed by Pierre Hernandez R.N. (17:13 08/18/2016)] [Electronically signed by Mahendra Brink Dr. (08:50 08/19/2016)] [Electronically locked/signed by Pierre Hernandez R.N. (17:13 08/18/2016)]
--- NOTE | 2016-08-18 16:48 | ED CLINICAL REPORT ---
Clinical Report - Physicians/Mid Levels [facility] [address] [place] [address] 08/18/2016 13:30 Patient: ROXANNE CAMPBELL Time Seen: 13:35; initial patient contact. Arrived- By private vehicle. Historian- patient. HISTORY OF PRESENT ILLNESS Chief Complaint: ABDOMINAL PAIN. It is described as "pain" and it is described as located in the epigastric area. At its maximum, severity described as moderate. When seen in the E.D., severity described as moderate. Modifying factors. Not worsened by anything. Not relieved by anything. The patient has had nausea. No loss of appetite, vomiting or diarrhea. Similar symptoms previously: Many times. Recent medical care: Not recently seen/assessed. REVIEW OF SYSTEMS No constipation, pain with urination, fever, difficulty breathing or chills. She has had chest pain. All systems otherwise negative, except as recorded above. PAST HISTORY Hiatal Hernia. UTI - Urinary Tract Infection. Fibromyalgia. Abdominal Pain. Gastritis. Hypokalemia. Gastroesophageal Reflux Disease. Twisted Bowel. Sinusitis. Lifestyle / Substance Problems. Headache. Migraine Headache. SURGERIES: Bladder Suspension. Hiatal hernia. Hysterectomy. Previous Abdominal Surgery. Medications: Gabapentin Oral 300 mg, at bedtime. Cymbalta Oral 90, mg. Dicyclomine HCl Oral 20 mg, daily. Allergies: Phenergan. SOCIAL HISTORY Current every day smoker. Occasional alcohol use. ADDITIONAL NOTES The nursing notes have been reviewed. PHYSICAL EXAM Vital Signs: 08/18/2016 13:36 BP: 168/99. HR: 118. RR: 17. O2 saturation: 100%. Temp: 97.9 F. Pain level now: 8/10. Have been reviewed. Hypertensive. Tachycardic. Respiratory rate normal. Temperature normal. Oxygen saturation normal. Appearance: Alert. Oriented X3. No acute distress. Eyes: Eyes normal inspection. ENT: Pharynx normal. CVS: Tachycardia. Heart sounds normal. Rhythm normal. Respiratory: No respiratory distress. Breath sounds normal. Chest nontender. Abdomen: Soft. Mild tenderness in the epigastric area. No guarding, rebound tenderness or Chatman's sign present. Bowel sounds normal. No organomegaly. No mass. Back: Normal inspection. No CVA tenderness. Skin: Skin warm and dry. Normal skin color. No rash. Neuro: Oriented X 3. LABS, X-RAYS, AND EKG EKG: EKG time: (1356). Regular narrow-complex tachycardia (ventricular rate 116). Sinus tachycardia. Normal P waves. Normal DINORAH. Normal QRS complex. Normal axis. Normal ST and T waves, QT and QTc. Prior EKG unavailable. The study has been interpreted contemporaneously by me. The study has been independently viewed by me. The EKG appears to be a good tracing. Interpretation time: 1356. KUB: No acute disease. Increased stool present. Gas pattern normal. Views: AP. Technique: good. The X-rays were independently viewed by me and interpreted contemporaneously by me. Laboratory Tests: UA-Culture if indicated: (KWASI: 08/18/2016 14:30) ( [facility] 08/18/2016 15:08) Final results Test Result Flag Units (Reference) URINE COLOR YELLOW URINE APPEARANCE CLEAR URINE GLUCOSE NEGATIVE (NEGATIVE) URINE BILIRUBIN NEGATIVE (NEGATIVE) URINE KETONE NEGATIVE (NEGATIVE) URINE SPECIFIC GRAVITY 1.025 (1.010-1.030) URINE PH 6.0 (5.0-8.0) URINE PROTEIN TRACE (NEGATIVE) URINE UROBILINOGEN 0.2 EU/dL (0.2-1.0) URINE NITRITE NEGATIVE (NEGATIVE) URINE BLOOD NEGATIVE (NEGATIVE) URINE LEUK ESTERASE NEGATIVE (NEGATIVE) URINE RBC NONE SEEN rbc/hpf (0-1) URINE WBC 5-10 wbc/hpf (0-1) URINE EPITHELIAL CELLS 5-10 EPI/hpf (0-5) URINE BACTERIA TRACE (<1+) (NONE SEEN) URINE COMMENT CULT NOT INDICATED 20-30 Hyaline Casts/l.p.f.URINE CULTURES ARE SET-UP BASED ON THE FOLLOWING CRITERIA:POSITIVE NITRITEPOSITIVE LEUKOCYTE ESTERASEGREATER THAN 10 WHITE BLOOD CELLSMODERATE (2+) OR GREATER BACTERIA CBC w Diff: (KWASI: 08/18/2016 14:30) ( [facility] 08/18/2016 14:59) Final results Test Result Flag Units (Reference) WHITE BLOOD COUNT 7.2 K/uL (4.5-11.5) RED BLOOD COUNT 4.16 M/uL (4.00-5.20) HEMOGLOBIN 13.9 gm/dL (12.0-16.0) HEMATOCRIT 41.4 % (36.0-46.0) MEAN CELL VOLUME 99 fL (80-100) MEAN CORPUSCULAR HGB 33 pg (26-34) MEAN CORPUSCULAR HGB CONC 34 g/dL (31-37) RED CELL DISTRIBUTION WIDTH 13.5 % (11.6-14.8) PLATELET COUNT 378 K/uL (150-400) NEUTROPHIL % 85.6 H % (50-75) LYMPH % 11.5 L % (25-40) MONO % 2.8 L % (3-14) EOSINOPHIL % 0 % (0-4) BASOPHIL % 0.1 % (0-2) Urine Drug Screen: (KWASI: 08/18/2016 14:30) ( MsgRcvd 08/18/2016 15:02) Final results Test Result Flag Units (Reference) AMPHETAMINE/METHAMPHETAMINE NEGATIVE (NEGATIVE) BARBITURATE NEGATIVE (NEGATIVE) BENZODIAZEPINE NEGATIVE (NEGATIVE) CANNABINOID NEGATIVE (NEGATIVE) COCAINE NEGATIVE (NEGATIVE) ECSTASY NEGATIVE (NEGATIVE) METHADONE NEGATIVE (NEGATIVE) OPIATE POSITIVE H (NEGATIVE) The urine drug screen is a qualitative screening test fordrug overdose and abuse. All screen results should beconsidered as presumptive.Drugs screened for are as follows:BenzodiazepinesCocaineAmphetamines/MetamphetaminesTHC (Tetrahydrocannabinol)OpiatesBarbituratesEcstasyMethadonePositive results are unconfirmed. For confirmation, notifythe lab for the specimen to be sent to the reference lab.All confirmations must be performed by a differentmethodology.The ingestion of natural herbal and plant productscontaining Ephedra/Ephedra metabolites can produce in urineone or more substances capable of cross reacting withamphetamine/methamphetamine immunoassays. These testsprovide a preliminary result only. A more specificalternative chemical method must be used to obtain aconfirmed analytical result. CMP: (KWASI: 08/18/2016 14:30) ( MsgRcvd 08/18/2016 14:58) Final results Test Result Flag Units (Reference) GLUCOSE 225 H mg/dL (70-110) BUN 9 mg/dL (7-18) CREATININE 1.0 mg/dL (0.6-1.3) Estimated GFR >60 mL/min Estimated GFR- >60 mL/min Note: Persistent reduction over 3 months in eGFR<60 mL/min/1.73 m2 defines CKD. Patients with eGFR values>=60 mL/min/1.73 m2 may also have CKD if evidence ofpersistent proteinuria. Additional information may be foundat www.kidney.org. SODIUM 133 L mmol/L (136-145) POTASSIUM 3.5 mmol/L (3.5-5.1) CHLORIDE 95 L mmol/L (98-107) CARBON DIOXIDE 22 mmol/L (21-32) CALCIUM 8.1 L mg/dL (8.5-10.1) TOTAL PROTEIN 6.8 g/dL (6.4-8.2) ALBUMIN 3.2 L g/dL (3.3-5.0) BILIRUBIN, TOTAL 0.3 mg/dL (0.0-1.0) ALKALINE PHOSPHATASE 170 H U/L (46-116) AST (SGOT) 53 H U/L (15-37) ALT (SGPT) 44 U/L (12-78) LIPASE 42 L U/L (73-393) AMYLASE 16 L U/L (25-115) . PROGRESS AND PROCEDURES Course of Care: Reviewed prior visits, > 3 visits where she received opiates w/out obvious pathology. Reviewed Dia report, has been receiving opiates from multiple ED visits. Disposition: Discharged home in good condition. Condition: good. CLINICAL IMPRESSION Acute epigastric abdominal pain of unknown cause. INSTRUCTIONS Your Current Medications: CONTINUE TAKING THE FOLLOWING MEDICATIONS: Cymbalta Oral : 90 mg. Dicyclomine HCl Oral : 20 mg daily. Gabapentin Oral : 300 mg at bedtime. Prescription Medications: Reglan 10 mg tablets: take 1 orally four times daily (30 minutes before meals and at bedtime). Dispense sixty (60). No refills. Substitution is permissible. Follow-up: Follow up with your doctor in two days. Call for an appointment. Screening today revealed the patient's blood pressure to be in the hypertensive range. The patient should follow up with a primary care provider for blood pressure management. (Electronically signed by Mahendra Brink Dr. 08/19/2016 8:50)
--- NOTE | 2016-08-18 16:59 | DIAGNOSTIC IMAGING REPORT ---
PROCEDURE: XR ABDOMEN 1 VIEW INDICATION: ABDOMINAL PAIN TECHNIQUE: Single view upright abdomen. COMPARISON: CT abdomen pelvis 06/09/2016 FINDINGS: No free air. Air fluid level in the stomach and in nondistended left upper quadrant bowel loops. Decompressed colon. No suspicious mass effect. Surgical clips in the right low pelvis and partially imaged in the right inguinal region. Clear, hyperinflated lung bases. IMPRESSION: 1. No evidence of obstruction, but air fluid levels suggestive of ileus. 2. Surgical changes in the pelvis and right inguinal region.
--- NOTE | 2016-08-19 08:50 | ED MED RECONCILIATION SUMMARY ---
Patient: ROXANNE CAMPBELL Medication Reconciliation Report [facility] VisitID: [id number] [address] [place] [address] 56y, F Registration Date/Time: 08/18/2016 Weight: 59.4 kg Height/Length: 69 in. BMI: 19.4 ALLERGIES: Phenergan The patient's Home Medications are listed below: CONTINUE TAKING THE FOLLOWING MEDICATIONS: Cymbalta Oral 90, mg Dicyclomine HCl Oral 20 mg, daily Gabapentin Oral 300 mg, at bedtime The source(s) of the original Home Medication information: patient The following Medications were given to the patient in the Emergency Department: IV NS IV Fluids bolus 0, then 1000 mL/hr, administered: 08/18/2016 2:43:00 PM Reglan [IVP] IVP 10 mg, administered: 08/18/2016 2:43:00 PM Toradol [IVP] IVP 30 mg, administered: 08/18/2016 2:43:00 PM The following Medications were prescribed to the patient: Reglan 10 mg tablets: take 1 orally four times daily (30 minutes before meals and at bedtime). Dispense sixty (60). No refills. Substitution is permissible. -- Mahendra Brink Dr.
--- NOTE | 2016-08-19 08:50 | ED MAR SUMMARY ---
..... Medication Administration Record [facility] [address] [place] [address] Patient: ROXANNE CAMPBELL Visit ID: [id number] 56y, F Weight: 59.4 kg Height/Length: 69 in BMI: 19.4 ALLERGIES: Phenergan Start 14:08/18/2016 Sharan Garcia R.N. Medication Administered: IV NS (SALINE), Dose: IV Fluids over 1 hour(s), Rate: 1000 mL/hr, Dispensed: 1000 mL bag, Site: #1 right AC. Medication Ordered: IV NS : initial bolus none -, then 1000 mL/hr for X1 (NOW). Given 14:08/18/2016 Sharan Garcia R.NCassie Medication Administered: REGLAN [IVP] (METOCLOPRAMIDE HCL), Dose: 10 mg IVP over 2 hour(s), Site: #1 right AC. Medication Ordered: Reglan IV 10 mg (NOW). Given 14:08/18/2016 Sharan Garcia R.NCassie Medication Administered: TORADOL [IVP], Dose: 30 mg IVP over 2 minute(s), Site: #1 right AC. Medication Ordered: Toradol IV 30 mg (NOW).
--- NOTE | 2016-08-19 08:50 | ED MED RECONCILIATION SUMMARY ---
Patient: ROXANNE CAMPBELL Medication Reconciliation Report [facility] VisitID: [id number] [address] [place] [address] 56y, F Registration Date/Time: 08/18/2016 Weight: 59.4 kg Height/Length: 69 in. BMI: 19.4 ALLERGIES: Phenergan The patient's Home Medications are listed below: CONTINUE TAKING THE FOLLOWING MEDICATIONS: Cymbalta Oral 90, mg Dicyclomine HCl Oral 20 mg, daily Gabapentin Oral 300 mg, at bedtime The source(s) of the original Home Medication information: patient The following Medications were given to the patient in the Emergency Department: IV NS IV Fluids bolus 0, then 1000 mL/hr, administered: 08/18/2016 2:43:00 PM Reglan [IVP] IVP 10 mg, administered: 08/18/2016 2:43:00 PM Toradol [IVP] IVP 30 mg, administered: 08/18/2016 2:43:00 PM The following Medications were prescribed to the patient: Reglan 10 mg tablets: take 1 orally four times daily (30 minutes before meals and at bedtime). Dispense sixty (60). No refills. Substitution is permissible. -- Mahendra Brink Dr.
--- NOTE | 2016-08-19 08:50 | ED MAR SUMMARY ---
..... Medication Administration Record [facility] [address] [place] [address] Patient: ROXANNE CAMPBELL Visit ID: [id number] 56y, F Weight: 59.4 kg Height/Length: 69 in BMI: 19.4 ALLERGIES: Phenergan Start 14:08/18/2016 Sharan Garcia R.N. Medication Administered: IV NS (SALINE), Dose: IV Fluids over 1 hour(s), Rate: 1000 mL/hr, Dispensed: 1000 mL bag, Site: #1 right AC. Medication Ordered: IV NS : initial bolus none -, then 1000 mL/hr for X1 (NOW). Given 14:08/18/2016 Sharan Garcia R.NCassie Medication Administered: REGLAN [IVP] (METOCLOPRAMIDE HCL), Dose: 10 mg IVP over 2 hour(s), Site: #1 right AC. Medication Ordered: Reglan IV 10 mg (NOW). Given 14:08/18/2016 Sharan Garcia R.NCassie Medication Administered: TORADOL [IVP], Dose: 30 mg IVP over 2 minute(s), Site: #1 right AC. Medication Ordered: Toradol IV 30 mg (NOW).
--- NOTE | 2016-08-19 08:50 | ED DISCHARGE INSTRUCTIONS ---
Patient: ROXANNE CAMPBELL General Instructions [facility] VisitID: [id number] [place] [address] 56y, F Registration Date/Time: 08/18/2016 Acute epigastric abdominal pain of unknown cause. INSTRUCTIONS Your Current Medications: CONTINUE TAKING THE FOLLOWING MEDICATIONS: Cymbalta Oral : 90 mg. Dicyclomine HCl Oral : 20 mg daily. Gabapentin Oral : 300 mg at bedtime. Prescription Medications: Reglan 10 mg tablets: take 1 orally four times daily (30 minutes before meals and at bedtime). Dispense sixty (60). No refills. Substitution is permissible. Follow-up: Follow up with your doctor in two days. Call for an appointment. Screening today revealed the patient's blood pressure to be in the hypertensive range. The patient should follow up with a primary care provider for blood pressure management. ADDITIONAL INFORMATION Abdominal Pain, Unknown Cause (Female) The exact cause of your abdominal (stomach) pain is not certain. This does not mean that this is something to worry about, or the right tests were not done. Everyone likes to know the exact cause of the problem, but sometimes with abdominal pain, there is no clear-cut cause, and this could be a good thing. The good news is that your symptoms can be treated, and you will feel better. Your condition does not seem serious now; however, sometimes the signs of a serious problem may take more time to appear. For this reason,it is important for you to watch for any new symptoms, problems,or worsening of your condition. Over the next few days, the abdominal pain may come and go, or be continuous. Other common symptoms can include nausea and vomiting. Sometimes it can be difficult to tell if you feel nauseous, you may just feel bad and not associate that feeling with nausea. Constipation, diarrhea, and a fever may go along with the pain. The pain may continue even if treated correctly over the following days. Depending on how things go, sometimes the cause can become clear and may require further or different treatment. Additional evaluations, medications, or tests may be needed. Home care Your health care provider may prescribe medications for pain, symptoms, or an infection. Follow the health care provider's instructions for taking these medications. General care Rest until your next exam. No strenuous activities. Try to find positions that ease discomfort. A small pillow placed on the abdomen may help relieve pain. Something warm on your abdomen (such as a heating pad) may help, but be careful not to burn yourself. Diet Do not force yourself to eat, especially if having cramps, vomiting, or diarrhea. Water is important so you do not get dehydrated. Soup may also be good. Sports drinks may also help, especially if they are not too acidic. Make sure you don't drink sugary drinks as this can make things worse. Take liquids in small amounts. Do not guzzle them. Caffeine sometimes makes the pain and cramping worse. Avoid dairy products if you have vomiting or diarrhea. Don't eat large amounts at a time. Wait a few minutes between bites. Eat a diet low in fiber (called a low-residue diet). Foods allowed include refined breads, white rice, fruit and vegetable juices without pulp, tender meats. These foods will pass more easily through the intestine. Avoid whole-grain foods, whole fruits and vegetables, meats, seeds and nuts, fried or fatty foods, dairy, alcohol and spicy foods until your symptoms go away. Follow-up care Follow up with your health care provider as instructed, or if your pain does not begin to improve in the next 24 hours. When to seek medical care Seek prompt medical care if any of the following occur: Pain gets worse or moves to the right lower abdomen New or worsening vomiting or diarrhea Swelling of the abdomen Unable to pass stool for more than three days Fever of 100.4F (38C) or higher, or as directed by your healthcare provider. Blood in vomit or bowel movements (dark red or black color) Jaundice (yellow color of eyes and skin) Weakness, dizziness Chest, arm, back, neck or jaw pain Unexpected vaginal bleeding or missed period Call 911 Call emergency services if any of the following occur: Trouble breathing Confusion Fainting or loss of consciousness Rapid heart rate Seizure Metoclopramide Hydrochloride Oral tablet What is this medicine? METOCLOPRAMIDE (met oh kloe PRA mide) is used to treat the symptoms of gastroesophageal reflux disease (GERD) like heartburn. It is also used to treat people with slow emptying of the stomach and intestinal tract. How should I use this medicine? Take this medicine by mouth with a glass of water. Follow the directions on the prescription label. Take this medicine on an empty stomach, about 30 minutes before eating. Take your doses at regular intervals. Do not take your medicine more often than directed. Do not stop taking except on the advice of your doctor or health director of career resources. A special MedGuide will be given to you by the pharmacist with each prescription and refill. Be sure to read this information carefully each time. Talk to your scroll assembler regarding the use of this medicine in children. Special care may be needed. What side effects may I notice from receiving this medicine? Side effects that you should report to your doctor or health director of career resources as soon as possible: allergic reactions like skin rash, itching or hives, swelling of the face, lips, or tongue abnormal production of milk in females breast enlargement in both males and females change in the way you walk difficulty moving, speaking or swallowing drooling, lip smacking, or rapid movements of the tongue excessive sweating fever involuntary or uncontrollable movements of the eyes, head, arms and legs irregular heartbeat or palpitations muscle twitches and spasms unusually weak or tired Side effects that usually do not require medical attention (report to your doctor or health director of career resources if they continue or are bothersome): change in sex drive or performance depressed mood diarrhea difficulty sleeping headache menstrual changes restless or nervous What may interact with this medicine? acetaminophen cyclosporine digoxin medicines for blood pressure medicines for diabetes, including insulin medicines for hay fever and other allergies medicines for depression, especially an Monoamine Oxidase Inhibitor (MAOI) medicines for Parkinson's disease, like levodopa medicines for sleep or for pain tetracycline What if I miss a dose? If you miss a dose, take it as soon as you can. If it is almost time for your next dose, take only that dose. Do not take double or extra doses. Where should I keep my medicine? Keep out of the reach of children. Store at room temperature between 20 and 25 degrees C (68 and 77 degrees F). Protect from light. Keep container tightly closed. Throw away any unused medicine after the expiration date. What should I tell my health care provider before I take this medicine? They need to know if you have any of these conditions: breast cancer depression diabetes heart failure high blood pressure kidney disease liver disease Parkinson's disease or a movement disorder pheochromocytoma seizures stomach obstruction, bleeding, or perforation an unusual or allergic reaction to metoclopramide, procainamide, sulfites, other medicines, foods, dyes, or preservatives or trying to get breast-feeding What should I watch for while using this medicine? It may take a few weeks for your stomach condition to start to get better. However, do not take this medicine for longer than 12 weeks. The longer you take this medicine, and the more you take it, the greater your chances are of developing serious side effects. If you are an elderly patient, a female patient, or you have diabetes, you may be at an increased risk for side effects from this medicine. Contact your doctor immediately if you start having movements you cannot control such as lip smacking, rapid movements of the tongue, involuntary or uncontrollable movements of the eyes, head, arms and legs, or muscle twitches and spasms. Patients and their families should watch out for worsening depression or thoughts of suicide. Also watch out for any sudden or severe changes in feelings such as feeling anxious, agitated, panicky, irritable, hostile, aggressive, impulsive, severely restless, overly excited and hyperactive, or not being able to sleep. If this happens, especially at the beginning of treatment or after a change in dose, call your doctor. Do not treat yourself for high fever. Ask your doctor or health director of career resources for advice. You may get drowsy or dizzy. Do not drive, use machinery, or do anything that needs mental alertness until you know how this drug affects you. Do not stand or sit up quickly, especially if you are an older patient. This reduces the risk of dizzy or fainting spells. Alcohol can make you more drowsy and dizzy. Avoid alcoholic drinks. You have been given the following additional information: Abdominal Pain, Unknown Cause, (Female) Metoclopramide Hydrochloride Oral tablet (Electronically signed by Mahendra Brink Dr. 08/19/2016 8:50)
== END 2016-08-18 17:09 | disposition home or self-care (01) ==
LOC: ED SRH 13:30
DX: R10.13 Epigastric pain (principal); F17.210 Nicotine dependence, cigarettes, uncomplicated; Z79.899 Other long term (current) drug therapy
CPT/HCPCS: 90004; 90100; 92235; 92530; 92760; 92761; 92762; 92763; 92764; 92765; 92766; 92767; 95059